=== PATIENT | female | born 1990 | race African-American/Black ===

== ENCOUNTER 2016-09-12 11:57 | Inpatient (IN) ==
[2016-09-12] MEDS ORDERED: ASPIRIN PO STA (13:45)
[2016-09-12] MEDS ORDERED: NS 1,000 ML IV ONE (13:47)
[2016-09-12 14:37] LABS: INR 1.06 (0.86-1.15); PROTIME 14.1 Seconds (12.1-15.5)
[2016-09-12 14:38] LABS: PTT PL 35.8 Seconds (22.6-43.9)
[2016-09-12 14:47] LABS: AGAP 10; ALBUMIN 4.4 g/dL (3.5-5.0); ALKALINE PHOSPHATASE 109 U/L (32-104); BUN 5 mg/dL (8-22); CALCIUM 9.2 mg/dL (8.8-10.2); CHLORIDE 104 mmol/L (98-107); CK PROFILE 86 U/L (24-173); COSMO 272; GOT 49 U/L (10-30); GPT 38 U/L (10-36); MAGNESIUM 1.8 mg/dL (1.5-2.7); POTASSIUM 3.9 mmol/L (3.5-5.1); SODIUM 138 mmol/L (136-145); TCO2 23 mmol/L (25-35); TOTAL PROTEIN 7.6 g/dL (6.3-8.3)
[2016-09-12 14:54] LABS: BASO% 0.5 % (0.0-0.8); EOS# 0.08 X1000 (0.0-0.7); EOS% 0.5 % (0.0-10.0); HEMATOCRIT 20.9 % (37.0-47.0); HEMOGLOBIN 7.1 g/dL (12.0-16.0); IMM GRAN# 0.17 X1000 (0.0-0.04); LYMPH# 7.33 X1000 (1.2-3.4); LYMPH% 42.9 % (20.5-51.1); MANUAL DIFF NEEDED? YES; MCH 31.6 PG (27-31); MCV 92.9 FL (81-99); MONO# 1.49 X1000 (0.11-0.59); MONO% 8.7 % (1.7-9.3); MPV 9.7 FL (7.4-10.4); NEUT% 46.4 % (42.2-75.2); PLT 353 X1000 (130-400); RBC 2.25 XMIL (4.2-5.4)
[2016-09-12 14:55] LABS: LYMPHS 34 % (21-51); MONO 9 % (1-9)
--- NOTE | 2016-09-12 15:01 | Diag Imaging Result Document ---
PROCEDURE NAME: CHEST-2 VIEWS - 09/12/2016 PA AND LATERAL RADIOGRAPH OF THE CHEST: COMPARISON: 07/13/2016. FINDINGS: There is a right central line in stable position. The lungs are grossly clear. There is no definite pleural fluid collection. Cardiac silhouette and central vasculature are unremarkable. IMPRESSION: No definite acute pathology by plain radiograph.
[2016-09-12] MEDS ORDERED: DILAUDID IV ONE (15:02)
[2016-09-12] MEDS ORDERED: DILAUDID ONE (15:04)
--- NOTE | 2016-09-12 15:13 | EKG Report ---
Test Performed on : 09/12/2016 2:11:31 PM Test Reason : CHEST PAIN Blood Pressure : / mmHG Vent. Rate : 085 BPM Atrial Rate : 085 BPM P-R Int : 164 ms QRS Dur : 076 ms QT Int : 394 ms P-R-T Axes : 059 018 027 degrees QTc Int : 468 ms Normal sinus rhythm. Normal ECG When compared with ECG of 13-JUL-2016 16:05, No significant change was found Unconfirmed Result
[2016-09-12 15:28] LABS: RETIC% 13.95 % (0.8-2.1); RETIC-HE 34.5 PG (28.2-36.6)
[2016-09-12 15:29] LABS: BILIRUBIN URINE NEGATIVE (NEGATIVE); BLOOD URINE NEGATIVE (NEGATIVE); CLARITY CLEAR (CLEAR); COLOR YELLOW; GLUCOSE URINE NEGATIVE (NEGATIVE); LEUKOCYTES URINE TRACE (NEGATIVE); NITRITE URINE NEGATIVE (NEGATIVE); PROTEIN URINE NEGATIVE (NEGATIVE); SP GRAVITY URINE 1.005; URINE CAST NONE SEEN /LPF; URINE CRYSTAL NONE SEEN /HPF; URINE CULTURE PL NEEDED? YES; URINE EPITHELIAL CELLS <10 /HPF (<10); URINE SOURCE CLEAN CATCH; URINE WBC <10 /HPF (<10); UROBILINOGEN URINE 1+(1 mg/dL)
--- NOTE | 2016-09-12 16:14 | PROVIDER DOCUMENTATION ---
This chart was entered by Jori London Scribe, acting as scribe for Josiane Jay MD. HPI-General Adult - General Chief Complaint: General Adult Stated Complaint: ABD PAIN Time Seen by Provider: 09/12/16 13:26 Source: patient Allergies/Adverse Reactions: Patient Allergies Allergy/AdvReac Type Severity Reaction Status Date / Time chlorpromazine HCl * Allergy Mild RASH Verified 07/13/16 14:24 [From Thorazine] ketorolac tromethamine * Allergy MUSCLE Verified 07/13/16 14:24 [From Toradol] SPASMS Home Medications: Home Medication List Medication Instructions Recorded Confirmed Last Taken Type Folic Acid 1 mg PO DAILY #0 tablet 11/01/13 07/11/16 07/11/16 07:00 Rx Clonazepam [Klonopin] 1 mg PO BID 02/26/14 07/11/16 07/11/16 07:00 History Hydroxyurea 500 mg PO BID 12/08/15 07/11/16 07/11/16 07:00 History Zolpidem [Ambien] 10 mg PO QHS 01/23/16 07/11/16 04/01/16 History Hydrocodone/APAP 5 mg/325 mg 1 each PO BID PRN #10 tablet 03/01/16 07/11/1607/26 07:00 Rx [[place]-5] Promethazine [Phenergan] 25 mg PO Q6H PRN PRN #20 tablet 04/02/16 07/11/1607/10 20:00 Rx Cetirizine HCl [Zyrtec] 10 mg PO DAILY 07/08/16 07/11/16 Unknown History Deferasirox [Jadenu] 90 mg PO 5XDAY 07/08/16 07/11/16 07/10/16 07:00 History - History of Present Illness -Gen Adult Nature of Presenting Problems: Hx of Sickle Cell anemia presents to er with cc of left sided pain x 1 week. Reports has had an ultrasound and a CT with no acute findings to pt pain. [facility] 3 days ago. Reports takes daily norco 10mg reports no relief. Location of Pain/Injury: reports: other (left rib) Quality of Pain: reports: aching Severity: reports: moderate Onset/Duration: reports: 1 week ago Timing: reports: still present Similar Symptoms Previously?: No Recently seen or treated by another doctor?: Yes Review of Systems - Adult - REVIEW OF SYSTEMS - ADULT Constitutional: denies: chills, fever, fatique Eyes: reports: no symptoms reported Ears, Nose, Mouth & Throat: reports: no symptoms reported Cardiovascular: denies: chest pain, irregular heart rate, orthopnea, syncope Respiratory: denies: cough, hemoptysis, pleurisy, shortness of breath, wheezing Gastrointestinal: reports: no symptoms reported Genitourinary: reports: no symptoms reported Musculoskeletal: reports: see HPI, bone pain. denies: joint pain, joint swelling, muscle aches Integumentary: reports: no symptoms reported Neurological: reports: no symptoms reported Psychiatric: reports: no symptoms reported Endocrine: reports: no symptoms reported Hematologic/Lymphatic: reports: no symptoms reported Allergic/Immunologic: reports: no symptoms reported All Other Systems: Reviewed and Negative Past History - Adult - PAST MEDICAL HISTORY-ADULT Review of Records: reports: Nursing Assessment Review, Medications Reviewed Major Childhood Illnesses: reports: denies history Neurological: reports: Seizures/Epilepsy (as a child) Endocrine/Immune: reports: Sickle Cell disease Sickle Cell Genotype:: SS - PRIOR SURGERIES/PROCEDURES Surgical/Procedure History: reports: cholecystectomy, BTL, , tonsillectomy, breast (reduction), other (port placement x 3) - IMMUNIZATION STATUS Childhood Immunizations: See Nurse Assessment Flu Vaccine: See Nurse Assessment - FAMILY HISTORY Family History: reviewed, not pertinent - SOCIAL HISTORY Smoking: cigarettes, less than 1 pack/day Provider spent 3-5 mins advising pt. on dangers of tobacco.: Discussed manners to quit use, and f/u contacts for add'l counseling. Substance Use: none/never Physical Exam-General - PHYSICAL EXAM-ADULT Initial Vital Signs Reviewed: Yes - CONSTITUTIONAL General Appearance: appears well, alert, mild distress - EYES Eyes: PERRL/EOMI - HEAD, EARS, NOSE, MOUTH & THROAT HENMT: moist mucous membranes, normal ENT inspection, TMs normal, pharynx normal - NECK Neck: non-tender, full range of motion, supple, normal inspection - RESPIRATORY Respiratory: chest non-tender, lungs clear, normal breath sounds, no pleuratic chest pain, no respiratory distress, no accessory muscle use - CARDIOVASCULAR Cardiovascular: tachycardia - GASTROINTESTINAL (ABDOMEN) Abdominal Exam: soft, no organomegaly, no pulsatile mass, tenderness ( generalized ttp) - MUSCULOSKELETAL Back Exam: normal inspection, no CVA tenderness, no vertebral tenderness Extremity: normal range of motion, non-tender - SKIN Integumentary: normal color, normal turgor, warm/dry - PSYCHIATRIC Psych/Mental Status: normal mood/affect, normal thought content, normal thought process, oriented x 3 Progress - PLAN OF CARE/RESULTS Progress/Plan/Lab Results: Vital Signs - 8 hr 09/12/16 12:11 Temperature 98 F Pulse Rate 100 H Respiratory Rate 18 Blood Pressure 124/70 O2 Sat by Pulse Oximetry 99 Orders Category Date Time Status Cardiac Monitoring DIRECTED Care 09/12/16 13:46 Active Saline Loc NOW Care 09/12/16 13:46 Active CHEST-2 VIEWS [RAD] Stat Exams 09/12/16 13:46 Ordered CBC WITH ELECTRONIC DIFF [HEME] Stat Lab 09/12/16 13:46 Ordered CK PROFILE [SP CHEM] Stat Lab 09/12/16 13:46 Ordered COMPREHENSIVE METABOLIC PANEL [CHEM] Stat Lab 09/12/16 13:46 Ordered D-DIMER PL [COAG] Stat Lab 09/12/16 13:46 Ordered MAGNESIUM [CHEM] Stat Lab 09/12/16 13:46 Ordered PRO B-NATRIURETIC PEPTIDE Stat Lab 09/12/16 13:[address]IME WITH INR PL [COAG] Stat Lab 09/12/16 13:[address] [COAG] Stat Lab 09/12/16 13:46 Ordered TROPONIN T Stat Lab 09/12/16 13:46 Ordered ua [URINALYSIS PL W/POSS RFLX CULT] [URINALYSIS] Stat Lab 09/12/16 13:47 Uncollected 0.9% Sodium Chloride Inj [Ns] 1,000 ml Med 09/12/16 13:47 Active IV 999 mls/hr Aspirin Med 09/12/16 13:45 Discontinued 325 mg PO STAT STA EKG [EKG] Stat Ther 09/12/16 13:46 Ordered Result Diagrams: 09/12/16 14:15 09/12/16 14:15 - EKG 1 Time of EKG reading by physician:: 14:11 EKG Read and Signed by:: Josiane Jay EKG Interpretation (*Must complete 3 of following elements*): Normal Rate: 85 Rhythm: nsr [place]: normal QRS: normal - CT/MRI 1 CT Study: other (angiogram/pulmonary arteries) Impression: Abnormal (no pe. mild basilar subsegmental atelectasis. mildly prominent heart.) - CONSULTS/PCP/HOSPITALIST Notification #1 *Consult/PCP/Hospitalist*: Time Discussed: 16:14 Consult Disposition: Admit Departure - Departure Time of Disposition Decision: 16:12 DIAGNOSIS: Sickle cell crisis Anemia Qualifiers: Anemia type: unspecified type Qualified Code(s): D64.9 - Anemia, unspecified Disposition: ADMITTED INPATIENT 09 Certified Medical Emergency: Emergent Condition: Stable Referrals and Follow-Ups: Roslyn King [Primary Care Provider] - This chart was documented by the indicated scribe, (Jori London Scribe) and accurately reflects the services I performed and decisions made by me, Josiane Jay MD, as attested by the provider's signature.
--- NOTE | 2016-09-12 16:23 | Diag Imaging Result Document ---
PROCEDURE NAME: ANGIOGRAM/PULMONARY ARTERIES - 09/12/2016 CTA CHEST: COMPARISON: 12/06/2015. FINDINGS: There is no evidence of pulmonary embolism. There is no evidence of aortic dissection or aneurysm. There is no evidence of significant mediastinal or hilar lymphadenopathy. There is suggestion of mild subsegmental atelectasis at the lung bases. The lungs are clear otherwise. There is no pleural fluid collection. The heart is somewhat prominent. Review of the upper abdomen reveals a very heterogeneous spleen, likely owing to the patient's sickle cell anemia. It is stable as compared to the very recent prior CT of the abdomen and pelvis performed earlier today. IMPRESSION: 1. Suggestion of mild bibasilar subsegmental atelectasis. 2. Mildly prominent heart. 3. No evidence of pulmonary embolism.
[2016-09-12] MEDS ORDERED: MORPHINE IV ONE (16:44)
[2016-09-12] MEDS ORDERED: ZOFRAN IV ONE (16:44)
[2016-09-12] MEDS: NS 1,000 ML IV SCH (18:56)
[2016-09-12] MEDS ORDERED: TYLENOL PO PRN (18:57)
[2016-09-12] MEDS: SODIUM CHLORIDE 0.9% INJ SCH (20:55)
[2016-09-12] MEDS: PROTONIX IV SCH (20:56)
[2016-09-12] MEDS: DILAUDID IV PRN (20:56)
[2016-09-12] MEDS: ZOFRAN IV PRN (21:42)
[2016-09-13] MEDS: DILAUDID IV PRN ×8 (00:35→20:49)
[2016-09-13] MEDS: ZOFRAN IV PRN ×2 (04:35→07:55)
[2016-09-13] MEDS: NS 1,000 ML IV SCH (07:55)
[2016-09-13 08:12] LABS: AGAP 10; ALBUMIN 4.3 g/dL (3.5-5.0); ALKALINE PHOSPHATASE 102 U/L (32-104); BUN 5 mg/dL (8-22); CALCIUM 9.1 mg/dL (8.8-10.2); CHLORIDE 103 mmol/L (98-107); COSMO 271; GOT 49 U/L (10-30); GPT 38 U/L (10-36); MAGNESIUM 1.8 mg/dL (1.5-2.7); SODIUM 137 mmol/L (136-145); TCO2 24 mmol/L (25-35); TOTAL PROTEIN 7.3 g/dL (6.3-8.3)
[2016-09-13 08:18] LABS: HEMATOCRIT 17.5 % (37.0-47.0); HEMOGLOBIN 6.1 g/dL (12.0-16.0); MCH 31.9 PG (27-31); MCHC 34.9 g/dL (33-37); MCV 91.6 FL (81-99); MPV 9.6 FL (7.4-10.4); RBC 1.91 XMIL (4.2-5.4)
[2016-09-13] MEDS ORDERED: BENADRYL PO ONE ×2 (08:52→11:30)
[2016-09-13] MEDS ORDERED: LOVENOX SUBQ SCH (09:00)
--- NOTE | 2016-09-13 09:14 | PROGRESS NOTE ---
DATE: 09/13/2016 SUBJECTIVE: The patient notes this morning that she is hurting all over, much more like her usual sickle cell crisis. States the pain started in her back as noted on the HPI over her left ribs, but unfortunately is now throughout her body. OBJECTIVE: Vital Signs: Temperature 97.0 degrees, pulse 83, respiratory rate 10, BP 108/60, satting 97% on room air. General: Patient is a well developed, well nourished female, who is in no respiratory distress, but is in obvious pain. HEENT: Normocephalic. Atraumatic. Neck: Supple. CV: Regular rate. Chest: Relatively clear. Abdomen: Soft. Extremities: Moves all extremities. Neurologic: No focal changes. LABS: Hemoglobin and hematocrit 6 and 17, WBCs 17. CMP unchanged from previous. ASSESSMENT: 1. Sickle cell pain crisis. 2. Sickle cell anemia with hemoglobin and hematocrit at 6 and 17 requiring transfusion. 3. Leukocytosis. PLAN: We will increase her Dilaudid to 2 q. 2 hours. Will add Phenergan through her port. Will type, cross, transfused 2 units, and will follow. cc: Gonzalo Rose MD
[2016-09-13] MEDS: PHENERGAN IV PRN ×3 (09:33→20:49)
[2016-09-13] MEDS ORDERED: NS 250 ML ONE (11:58)
--- NOTE | 2016-09-13 15:41 | HISTORY AND PHYSICAL ---
PRIMARY CARE PROVIDER: Dr. Roslyn King. PRIMARY CONCIERGE MANAGER: Dr. Telly Richards who follows her for sickle cell. CHIEF COMPLAINT: Rib pain left radiating around to the back. HISTORY OF PRESENT ILLNESS: This is a 26-year-old female, well known to our service. She has a history of sickle cell disease, gastroesophageal reflux disease, anxiety who comes in complaining of left lower rib pain radiating around to her back for a week. She has been evaluated by her primary care physician as well as Dr. Richards. CT scan was performed and when negative findings were discovered she was placed on Zanaflex for muscle pain. She states Zanaflex is not working. She was found to have a white count of 17.10 with a hemoglobin of 7 and hematocrit 20.9, and platelets of 353,000. Reticulocyte is 13.95 with a D-dimer of 1.55. LFTs are elevated. She was given morphine and Dilaudid IV in the emergency room. CTA was performed which was negative for PE. She was admitted for further evaluation and treatment. PAST MEDICAL HISTORY: Sickle cell disease, gastroesophageal reflux disease, anxiety and insomnia. PAST SURGICAL HISTORY: Cholecystectomy, , tubal ligation, tonsillectomy, breast reduction. SOCIAL HISTORY: She smokes a pack a day. Denies alcohol or illicit drug use. ALLERGIES: Toradol, Thorazine. HOME MEDICATIONS: A list will be obtained. REVIEW OF SYSTEMS: A 14 point review of systems were discussed with patient with pertinent positives stated in HPI. All other systems are negative. She denied chest pain, palpitations, dizziness, syncope, cough, fever, chills, recent weight loss, weight gain, nausea, vomiting, diarrhea, constipation, black or bloody vomitus, black or bloody stools. PHYSICAL EXAMINATION: GENERAL: This is a 26-year-old female who is lying in the bed, in no distress. VITAL SIGNS: Blood pressure is 124/70, with a heart rate of 86, respirations are 18, temperature is 98.3 degrees with room air saturations of 98-100%. HEENT: Head is normocephalic, atraumatic. Pupils equal, round, react to light. EOMs are intact. Sclerae anicteric. Mucous membranes are moist. NECK: Supple with trachea midline. CARDIOVASCULAR: Regular rate and rhythm. No rubs, murmurs, or gallops. S1, S2 appreciated. PULMONARY: Breath sounds are clear with no increased work of breathing noted. She does have symmetrical rise and fall of her chest. GASTROINTESTINAL: Abdomen is soft, nontender, nondistended. Bowel sounds in all 4 quadrants. BACK: No CVAT. No spine tenderness. MUSCULOSKELETAL: Good range of motion of joints. NEUROLOGIC: She is alert and oriented x3. EXTREMITIES: No clubbing, cyanosis, or edema. Pulses are palpable x4. Calves are nontender. DIAGNOSTICS: Labs as stated above. ASSESSMENT AND PLAN: 1. Sickle cell crisis. We will continue IV hydration with IV pain medication. We will consider Hydrea. 2. Sickle cell anemia significant. We will transfuse 2 units packed red blood cells. 3. Left-sided rib pain. We will continue her Zanaflex. 4. Gastroesophageal reflux disease. 5. Anxiety. We will continue her Klonopin. 6. Tobacco abuse. We will order a nicotine patch for p.r.n. We did discuss smoking cessation with the patient and she states at this time she is not interested in stopping smoking. 7. For DVT prophylaxis we will use SCDs and for GI prophylaxis PPI. Dictated by HUONG Cueto for Gonzalo Rose MD cc: HUONG Cueto MD
[2016-09-13] MEDS ORDERED: ZANAFLEX PO PRN (17:38)
[2016-09-13] MEDS: HYDREA PO SCH (20:39)
[2016-09-13] MEDS: AMBIEN PO SCH ×2 (20:40→23:03)
[2016-09-13] MEDS: KLONOPIN PO SCH (20:40)
[2016-09-13] MEDS: PROTONIX IV SCH (20:40)
[2016-09-14] MEDS: DILAUDID IV PRN ×8 (01:03→22:54)
[2016-09-14] MEDS: PHENERGAN IV PRN ×5 (01:03→23:32)
[2016-09-14] MEDS: NS 1,000 ML IV SCH ×4 (04:09→23:31)
[2016-09-14] MEDS: KLONOPIN PO SCH ×2 (08:13→22:50)
[2016-09-14] MEDS: FOLIC ACID PO SCH (08:14)
[2016-09-14] MEDS: HYDREA PO SCH ×2 (08:14→22:50)
[2016-09-14] MEDS: ROCEPHIN 1 GM/NS 1 GM/50 ML IVPB IV SCH (11:37)
--- NOTE | 2016-09-14 11:53 | PROGRESS NOTE ---
DATE: 09/14/2016 SUBJECTIVE: The patient notes that her sickle cell issues certainly appear to be improving. She is not hurting nearly as significantly as she was yesterday, although she is still having some left upper flank/lower left rib pain. This is ammonia distiller to touch. PHYSICAL EXAMINATION: Vital Signs: Temperature 98 degrees, pulse 78, respiratory rate 16, blood pressure 97/54 to 104/60, saturation 94% to 96% on room air. General: Patient is awake, alert. She is sitting up in the bed, watching television. She appears to be in no distress. Her feet are hanging over the side of the bed. HEENT: Normocephalic. Neck: Supple. Cardiovascular: Regular rate. Chest: Relatively clear. Abdomen: Soft. Extremities: Moves all extremities. Neurologic: No changes. ASSESSMENT: 1. Sickle cell pain crisis appears to be improving. 2. Increased cough, which Ms. Lyman notes is now productive. PLAN: We will a CBC to make sure that her WBC count has improved. We will start her on Rocephin, as she certainly could have a hidden pneumonia that has fluffed out. Will recheck a chest x-ray. We will continue her pain medication, although did ask her to try to start weaning her Dilaudid. Will recheck her hemoglobin and hematocrit, and transfuse to keep greater than 7 and 23. cc: Gonzalo Rose MD
[2016-09-14 12:19] LABS: HEMATOCRIT 24.3 % (37.0-47.0); HEMOGLOBIN 8.5 g/dL (12.0-16.0); MCV 88.7 FL (81-99); MPV 10.4 FL (7.4-10.4); RBC 2.74 XMIL (4.2-5.4)
[2016-09-14] MEDS: SODIUM CHLORIDE 0.9% INJ PRN ×2 (14:15→19:34)
[2016-09-14] MEDS: SODIUM CHLORIDE 0.9% INJ SCH (18:39)
[2016-09-14] MEDS: PROTONIX IV SCH (18:39)
[2016-09-14] MEDS: AMBIEN PO SCH (22:50)
[2016-09-15] MEDS: DILAUDID IV PRN ×7 (02:10→21:21)
[2016-09-15] MEDS: PHENERGAN IV PRN ×4 (05:28→21:22)
[2016-09-15] MEDS: NS 1,000 ML IV SCH ×2 (07:21→08:38)
[2016-09-15] MEDS: HYDREA PO SCH ×2 (08:37→21:22)
[2016-09-15] MEDS: FOLIC ACID PO SCH (08:37)
[2016-09-15] MEDS: KLONOPIN PO SCH ×2 (08:37→21:22)
--- NOTE | 2016-09-15 10:37 | Diag Imaging Result Document ---
PROCEDURE NAME: CHEST-2 VIEWS - 09/15/2016 CHEST X-RAY 2 VIEWS, 09/15/2016: COMPARISON: 09/12/2016. FINDINGS: Stable right chest port. There is some trace hazy atelectasis at the lower lobes bilaterally similar to prior. There is some new bandlike opacity in the right lung base laterally, suggesting a small infiltrate or atelectasis. Heart size is top normal. No pneumothorax or pleural effusion. IMPRESSION: Worsening mild atelectasis or nonspecific infiltrates in the lung bases.
[2016-09-15] MEDS ORDERED: SOMA PO ONE (11:24)
[2016-09-15] MEDS: SODIUM CHLORIDE 0.9% INJ PRN (11:25)
[2016-09-15] MEDS: ROCEPHIN 1 GM/NS 1 GM/50 ML IVPB IV SCH (11:26)
--- NOTE | 2016-09-15 11:47 | PROGRESS NOTE ---
DATE: 09/15/2016 SUBJECTIVE: The patient notes that her sickle cell pain appears to be improving. She is still having pain on her left lower lobe, left flank area in her back that is reproducible by touching and moving. Notes that the pain hurts worse when she takes a deep breath and she feels as though there are bubbles when she breathes. PHYSICAL EXAMINATION: Vital Signs: Temperature 98, pulse 89, respiratory rate 18, BP 112/74, saturation 99% on room air. General: Patient is awake, alert. She is in no current respiratory distress, although she does not want to take deep breaths secondary to the pain. ASSESSMENT: 1. Sickle cell pain crisis with sickle cell anemia. Hemoglobin and hematocrit are improved, currently 8 and 24, was down to 6 and 17 prior to transfusion. 2. Leukocytosis. This has remained stable at 17 which is essentially her baseline. Looking back to September of 2014, she has been between 13 and 20. 3. Left-sided rib pain. We will stop Zanaflex and try 1 dose of Soma. She notes that Zanaflex did not help her. This certainly appears to be more musculoskeletal as it hurts with deep breathing, hurts with movement, hurts with touch. 4. Abnormal chest x-ray. Discussed with Ms. Lyman that although she is hurting and taking lots of pain medication, she certainly has to take deep breaths as she is developing some worsening atelectasis in her lungs. She currently is on ceftriaxone. We will add azithromycin as well. cc: Gonzalo Rose MD
[2016-09-15] MEDS: ZITHROMAX PO SCH (12:14)
[2016-09-15 13:04] LABS: HEMATOCRIT 24.3 % (37.0-47.0); HEMOGLOBIN 8.2 g/dL (12.0-16.0); MCH 30.3 PG (27-31); MCHC 33.7 g/dL (33-37); MCV 89.7 FL (81-99); RBC 2.71 XMIL (4.2-5.4)
[2016-09-15 13:33] LABS: AGAP 8; ALKALINE PHOSPHATASE 102 U/L (32-104); AMYLASE 58 U/L (20-200); BUN 7 mg/dL (8-22); CALCIUM 8.7 mg/dL (8.8-10.2); CHLORIDE 103 mmol/L (98-107); COSMO 272; GOT 65 U/L (10-30); GPT 52 U/L (10-36); LIPASE 23 U/L (13-60); POTASSIUM 3.8 mmol/L (3.5-5.1); SODIUM 137 mmol/L (136-145); TCO2 27 mmol/L (25-35); TOTAL PROTEIN 6.7 g/dL (6.3-8.3)
[2016-09-15] MEDS: PROTONIX PO SCH (21:22)
[2016-09-15] MEDS: AMBIEN PO SCH (21:26)
[2016-09-16] MEDS: DILAUDID IV PRN ×9 (01:13→23:36)
[2016-09-16] MEDS: PHENERGAN IV PRN ×5 (01:13→23:35)
[2016-09-16] MEDS: ZITHROMAX PO SCH (08:46)
[2016-09-16] MEDS: KLONOPIN PO SCH ×2 (08:46→20:21)
[2016-09-16] MEDS: FOLIC ACID PO SCH (08:46)
[2016-09-16] MEDS: HYDREA PO SCH ×2 (08:46→20:21)
[2016-09-16] MEDS ORDERED: NS 500 ML ONE (10:38)
[2016-09-16] MEDS: SODIUM CHLORIDE 0.9% INJ PRN ×2 (10:41→14:50)
[2016-09-16] MEDS: ROCEPHIN 1 GM/NS 1 GM/50 ML IVPB IV SCH (10:41)
--- NOTE | 2016-09-16 16:17 | Diag Imaging Result Document ---
PROCEDURE NAME: CT THORAX W/CONTRAST - 09/16/2016 CT CHEST WITH CONTRAST: FINDINGS: Compared to 10/24/2015. Limited intravenous contrast due to lack of venous access. A dose of 60 mL were hand injected. Trace right fluid. The heart is borderline mildly prominent. No thoracic aneurysm. Mildly prominent mediastinal lymph nodes. There is a right-sided [id number]. No pneumothorax. Mild increased markings in the lung bases believed to be atelectasis. No consolidation. No lung mass. No bronchiectasis. IMPRESSION: 1. Basilar atelectasis, but no consolidation. 2. Mildly prominent mediastinal lymph nodes.
[2016-09-16] MEDS: PROTONIX PO SCH (20:21)
[2016-09-16] MEDS: AMBIEN PO SCH (23:19)
--- NOTE | 2016-09-17 00:56 | PROGRESS NOTE ---
DATE: 09/16/2016 SUBJECTIVE: Patient still complains of tenderness on her left flank, left lower rib area. Complains of this hurting with any movement or any touching. PHYSICAL: Vital signs: Temperature 98, pulse 78, respiratory 20, BP 102/60 saturations 90% on room air. General: Patient is awake, alert, oriented. She is in no distress. She states that she feels better. Notes that her sickle cell pain seems to have resolved she is still left with this left flank, left lower rib pain. HEENT: Normocephalic. Neck: Supple. CV: Regular rate. Chest: Relatively clear although she takes very shallow breaths. This seems to be intentional. Abdomen: Soft. Extremities: Moves all extremities. She is noted to have a very tender area on her left flank, left lower rehab which actually seems to be exquisitely tender before she is touched. DIAGNOSTIC DATA: WBCs improved back to her baseline currently 14, hemoglobin and hematocrit stable at 8.2 and 24. CMP essentially normal. ASSESSMENT: 1. Hyperbilirubinemia stable. 2. Mild hepatitis, AST and ALT is initially her baseline since October 2015. 3. Leukocytosis also her baseline since 2016. 4. Hyperbilirubinemia. This too is at its baseline. 5. Sickle cell pain crisis resolved. 6. Sickle cell anemia stable status post 2 units of transfusion. 7. Left lower lung, left flank pain. CT was obtained which was essentially negative. PLAN: Discussed with patient that she certainly needs to consider decreasing her pain medication. She notes that she has only been taking it every 4 hours or so. Hopefully she can be discharged home in the next 1-2 days. She notes that Soma seemed to help her pain. However discussed with her that she cannot continue Soma as it plus the amount of pain medications that she takes certainly is highly dangerous and highly addictive. cc: Gonzalo Rose MD
[2016-09-17] MEDS: DILAUDID IV PRN ×6 (03:48→19:47)
[2016-09-17] MEDS: PHENERGAN IV PRN ×4 (03:49→19:47)
[2016-09-17] MEDS: FOLIC ACID PO SCH (08:52)
[2016-09-17] MEDS: SODIUM CHLORIDE 0.9% INJ PRN ×3 (08:52→19:47)
[2016-09-17] MEDS: HYDREA PO SCH ×2 (08:52→20:28)
[2016-09-17] MEDS: KLONOPIN PO SCH ×2 (08:52→20:28)
[2016-09-17] MEDS: ZITHROMAX PO SCH (08:52)
[2016-09-17] MEDS: ROCEPHIN 1 GM/NS 1 GM/50 ML IVPB IV SCH (10:18)
--- NOTE | 2016-09-17 14:29 | PROGRESS NOTE ---
DATE: 09/17/2016 SUBJECTIVE: Today Ms. Lyman referred to be doing okay. Continues to have this persistent pain to the left posterior chest which gets worse with deep inspiration. OBJECTIVE: Vital signs: Blood pressure is 120/66, pulse of 92, respiration is 18, temperature 98.4 degrees. General: Ms. Lyman is a 26-year-old female. She is in bed, in mild painful distress. HEENT: Mucosa is pink and moist. Anicteric. Acyanotic. Neck: Supple. Chest: Air entry is bilaterally reduced. There are a few bibasilar crepitations but no rhonchi. Cardiovascular: Regular rate and rhythm. There is a port in the right upper chest wall. MASTER MACHINIST: Patient is alert and oriented x4. There is no focal neurological deficit. Abdomen: Soft. Bowel sounds are slightly reduced. LABORATORY DATA: WBC is 14.15, hemoglobin is 8.2, platelet count of 312,000. Chemistries reviewed, completely unremarkable except AST is 65, ALT is 52. Bilirubin is 1.90. DIAGNOSTIC STUDIES: A CT scan of the chest was done yesterday which reveals bibasilar atelectasis, no consolidation, mildly prominent mediastinal lymph nodes. ASSESSMENT: 1. Sickle cell crisis with chest pain. CT scan is negative for any consolidation. I think this is probably acute chest syndrome. We are going to restart her on IV fluids. We will continue with the antibiotic and adequate oxygenation if necessary. We will continue with her folic acid and hydroxyurea. 2. 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 Patient is status post 2 PRBC transfusions. 3. Hyperbilirubinemia consistent with sickling. 4. Hepatitis transaminitis likely secondary to sickle cell crisis. So in general I think Ms. Lyman has acute chest syndrome. We will continue with the IV fluids, with the current antibiotics and adequate pain control. We will review her tomorrow morning and reassess her hydration status and make changes to the rate of her fluids necessary. cc: Sesar Duran MD MTDD
[2016-09-17] MEDS: NS 1,000 ML IV SCH (16:13)
[2016-09-17] MEDS: AMBIEN PO SCH (20:29)
[2016-09-17] MEDS: PROTONIX PO SCH (20:29)
[2016-09-17] MEDS ORDERED: ATIVAN IV ONE (21:59)
[2016-09-18] MEDS: DILAUDID IV PRN ×7 (00:01→23:15)
[2016-09-18] MEDS: NS 1,000 ML IV SCH ×4 (00:04→22:20)
[2016-09-18] MEDS: PHENERGAN IV PRN ×6 (02:17→23:15)
[2016-09-18] MEDS ORDERED: FLEET ENEMA PR ONE (02:49)
[2016-09-18] MEDS ORDERED: MIRALAX PO ONE (02:49)
[2016-09-18] MEDS ORDERED: COLACE PO ONE (02:57)
[2016-09-18 07:10] LABS: BASO% 0.9 % (0.0-0.8); EOS% 2.2 % (0.0-10.0); HEMATOCRIT 22.2 % (37.0-47.0); HEMOGLOBIN 7.3 g/dL (12.0-16.0); IMM GRAN# 0.03 X1000 (0.0-0.04); IMM GRAN% 0.2 % (0.0-0.5); LYMPH# 6.74 X1000 (1.2-3.4); MANUAL DIFF NEEDED? YES; MCH 30.3 PG (27-31); MCHC 32.9 g/dL (33-37); MCV 92.1 FL (81-99); MONO# 1.22 X1000 (0.11-0.59); NEUT% 37.7 % (42.2-75.2); PLT 310 X1000 (130-400); RBC 2.41 XMIL (4.2-5.4)
[2016-09-18 07:26] LABS: AGAP 7; ALKALINE PHOSPHATASE 103 U/L (32-104); BUN 7 mg/dL (8-22); CALCIUM 8.8 mg/dL (8.8-10.2); CHLORIDE 104 mmol/L (98-107); COSMO 271; GOT 62 U/L (10-30); GPT 51 U/L (10-36); POTASSIUM 3.8 mmol/L (3.5-5.1); SODIUM 137 mmol/L (136-145); TCO2 26 mmol/L (25-35); TOTAL PROTEIN 7.1 g/dL (6.3-8.3)
[2016-09-18 08:00] LABS: BANDS 2 % (0-1); EOS 3 % (1-10); LYMPHS 51 % (21-51); MONO 4 % (1-9); NRBC 3 % (0-0)
[2016-09-18 08:01] LABS: HYPOCHROM 1+; TARGET CELLS 1+
[2016-09-18] MEDS ORDERED: MILK OF MAGNESIA PO ONE (08:45)
[2016-09-18] MEDS ORDERED: RELISTOR SUBQ ONE (08:45)
[2016-09-18] MEDS: HYDREA PO SCH ×2 (09:08→20:28)
[2016-09-18] MEDS: ZITHROMAX PO SCH (09:08)
[2016-09-18] MEDS: FOLIC ACID PO SCH (09:08)
[2016-09-18] MEDS: COLACE PO SCH (09:08)
[2016-09-18] MEDS: KLONOPIN PO SCH ×2 (09:08→20:28)
[2016-09-18] MEDS: SODIUM CHLORIDE 0.9% INJ PRN ×3 (10:50→19:11)
[2016-09-18] MEDS: ROCEPHIN 1 GM/NS 1 GM/50 ML IVPB IV SCH (10:50)
--- NOTE | 2016-09-18 15:43 | PROGRESS NOTE ---
DATE: 09/18/2016 SUBJECTIVE: Today, Ms. Lyman referred continuing to be hurting especially to the left posterior aspect of the chest and back. OBJECTIVE: Vital signs: Blood pressure is 110/60, pulse is 84, respirations 16 , temperature is 98.2 degrees. The patient has been completely afebrile since the night. General: On general examination, Ms. Lyman is a 26-year-old, female. She is in bed, in mild painful distress. HEENT: Mucus is pink and moist, anicteric, acyanotic. Neck: Supple. Chest: Clear. Cardiovascular: Regular rate and rhythm. There are no murmurs, no rubs. Abdomen: Soft, mildly tender to the left upper and flanks. Extremities: No pedal edema. Central Nervous System: Patient is alert and oriented x4. LABORATORY DATA: WBC is down to 13.46, hemoglobin is 7.3, platelet count of 310 ,000. There is 40% of segments, 2% of bands and 51% of lymphocytes. Chemistries reviewed, completely unremarkable. Total bilirubin is down to 1.60, AST is slightly down to 51. ASSESSMENT: 1. Sickle cell crisis with chest pain suspicious for acute chest syndrome. We will continue with adequate hydration, oxygenation if needed and pain management. 2. 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 The patient is status post 2 PRBC transfusions. Hemoglobin dropped slightly today to 7.3. We are going to keep an eye on this tomorrow. If it drops below 7, we will transfuse accordingly. 3. Hyperbilirubinemia consistent with sickling. 4. Transaminitis likely due to sickle cell crisis, improving. 5. Chronic pain syndrome. 6. Moderate to severe constipation. We will be aggressively treating this because I think this is causing part of patient's discomfort. A CT scan of the abdomen and pelvis , and also a CTA and a CT scan of the chest has ruled out any acute pathology that would be making the patient hurt. I think part of it is because of her sickle cell crisis but she has been under a lot of narcotics and she is severely constipated. I did explain to her that we will be reducing her narcotics because I think it is hurting her more than doing good. We will be addressing this sickling crisis with a lot of hydration, oxygenation if needed, some pain medication but we will be cutting down on her Dilaudid. I will give her 1 enema to help with her bowels. We will continue with the MiraLAX. I will also give her a dose of methylnaltrexone as a narcotic. In general, I think my encounter today with Ms. Lyman was that she was not extremely happy because of the fact that I told her we might be going down on her narcotics. She thinks the constipation is not part of her problem and she also thinks that she has been having sickle cell for some time and the pain is not consistent with sickling. I did explain to her that all her images seem to be fine and her white cell count is actually improving. Everything else in her lab work seems to be improving except that she is hurting, but because of the constipation I am going to reduce the pain medication. cc: Sesar Duran MD MTDD
[2016-09-18] MEDS: PROTONIX PO SCH (20:28)
[2016-09-18] MEDS: AMBIEN PO SCH (20:52)
[2016-09-19] MEDS: PHENERGAN IV PRN ×5 (03:06→20:38)
[2016-09-19] MEDS: DILAUDID IV PRN ×5 (03:06→20:38)
[2016-09-19] MEDS: NS 1,000 ML IV SCH ×3 (06:46→22:30)
[2016-09-19 07:29] LABS: BASO% 0.5 % (0.0-0.8); EOS% 2.2 % (0.0-10.0); HEMATOCRIT 20.3 % (37.0-47.0); HEMOGLOBIN 6.5 g/dL (12.0-16.0); IMM GRAN# 0.05 X1000 (0.0-0.04); IMM GRAN% 0.4 % (0.0-0.5); LYMPH# 6.08 X1000 (1.2-3.4); LYMPH% 45.2 % (20.5-51.1); MANUAL DIFF NEEDED? YES; MCH 29.8 PG (27-31); MCV 93.1 FL (81-99); MONO# 1.53 X1000 (0.11-0.59); MONO% 11.4 % (1.7-9.3); MPV 10.1 FL (7.4-10.4); NEUT% 40.3 % (42.2-75.2); PLT 269 X1000 (130-400); RBC 2.18 XMIL (4.2-5.4)
[2016-09-19 07:31] LABS: AGAP 9; ALBUMIN 3.6 g/dL (3.5-5.0); ALKALINE PHOSPHATASE 107 U/L (32-104); BUN 9 mg/dL (8-22); CALCIUM 8.7 mg/dL (8.8-10.2); CHLORIDE 103 mmol/L (98-107); COSMO 274; GOT 58 U/L (10-30); GPT 42 U/L (10-36); SODIUM 138 mmol/L (136-145); TCO2 26 mmol/L (25-35); TOTAL PROTEIN 6.7 g/dL (6.3-8.3)
[2016-09-19 08:06] LABS: EOS 3 % (1-10); HYPOCHROM 1+; LYMPHS 52 % (21-51); MONO 2 % (1-9); NRBC 2 % (0-0); TARGET CELLS OCCASIONAL
[2016-09-19] MEDS: COLACE PO SCH (09:47)
[2016-09-19] MEDS: ZITHROMAX PO SCH (09:47)
[2016-09-19] MEDS: HYDREA PO SCH ×2 (09:48→20:38)
[2016-09-19] MEDS: FOLIC ACID PO SCH (09:48)
[2016-09-19] MEDS: KLONOPIN PO SCH ×2 (09:48→20:38)
[2016-09-19] MEDS: ROCEPHIN 1 GM/NS 1 GM/50 ML IVPB IV SCH (11:49)
[2016-09-19] MEDS ORDERED: BENADRYL IV ONE (13:39)
[2016-09-19] MEDS ORDERED: TYLENOL PO ONE (13:39)
--- NOTE | 2016-09-19 14:47 | PROGRESS NOTE ---
DATE: 09/19/2016 SUBJECTIVE: Today Ms. Lyman referred to be doing a little better. Continues to have pain and she says she has had about 3 bowel movements. OBJECTIVE: Vital signs: Blood pressure is 88/47, pulse 82, respiration is 16, temperature is 98.6 degrees. General Exam: Ms. Lyman is a 26-year-old female. She is in bed, does not seem to be in any distress. HEENT: Mucosa is slightly pale. Anicteric. Acyanotic. Neck: Supple. Chest: Good air entry bilaterally. No crepitations. No rhonchi. Cardiovascular: Regular rate and rhythm. Abdomen: Soft, is mildly tender in the left upper quadrant to the back. Bowel sounds are present. Extremities: No pedal edema. IT TRAINER: Patient is alert and oriented x4. There is no focal neurological deficit. Extremities: No pedal edema. LABORATORY DATA: WBC is 13.45, hemoglobin is 6.5, and platelet count is 265, 000. Patient has predominant lymphocytes on the peripheral smear. The chemistries reviewed completely normal. Bilirubin is down to 1.30, AST is 58, ALT is 42, they are all improving. ASSESSMENT: 1. Sickle cell crisis with chest pain suspicious for acute chest syndrome. Patient is currently on IV hydration and adequate oxygenation and pain control. 2. Left upper quadrant pain. In a patient with a sickle cell crisis I am kind of concerned for splenic infarct. Initial CT scan was done, but it was without contrast and they could not see that much. A CT scan of the chest was unremarkable. I am going to do a CT scan of the abdomen because patient is on adequate amount of pain medication and still continues to have significant pain. I am concerned if she is having a splenic infarction from the sickle cell crisis. 3. 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 Hemoglobin and hematocrit has dropped again to 6.5, another reason to think that she is probably engorged in the spleen. I will go ahead and give her a unit of PRBC and recheck on her blood count for tomorrow. 4. Elevated liver function tests due to sickle cell crisis. This is improving. 5. Moderate to severe constipation. Will are going to be extremely careful with the opioid medication in this patient since we think it is probably causing part of her constipation. I will be addressing this symptomatically. 6. Chronic pain syndrome. Noted. PLAN: So in general, Ms. Lyman is a 26-year-old female, a little frequent flyer to the hospital. She came in on 09/13 because of pain radiating to the left rib, pain radiating around to the back. Initial workup did not actually show anything. Patient is being treated for sickle cell crisis. Persistently continues to have this inferior left chest pain with left upper quadrant pain. As I said, a CT scan of the chest was completely unremarkable. We are going to do a CT abdomen and pelvis specifically looking at the spleen to see if there had been any infarction. We will continue addressing her constipation issue with symptomatic approach. Of major concern, the patient has been in and out of hospital. She she gets a little bit offensive when you start addressing pain medication, especially when you make any suggestion about trying to cut down her pain medication needs. I think we will need to be extremely careful how much narcotics we give her since I think it is driving some of her stay. cc: Sesar Duran MD MTDD
--- NOTE | 2016-09-19 17:59 | Diag Imaging Result Document ---
PROCEDURE NAME: ABDOMEN/PELVIS W/CONTRAST - 09/19/2016 CT ABDOMEN AND PELVIS WITH INTRAVENOUS CONTRAST COMPARISON: 09/12/16. FINDINGS: Development of small basilar infiltrates. Trace pleural fluid. The gallbladder has been removed. Mottled appearance to the spleen is similar to that of the recent exam from 09/12/16. No focal hepatic abnormality. Normal pancreas and adrenal glands. Normal enhancement of the kidneys. No hydronephrosis. Normal aorta. Prominent stool throughout the colon. The bowel loops are not dilated. No inflammation about the cecum. No abscess. The urinary bladder is only mildly distended. Normal uterus. IMPRESSION: 1. Development of basilar infiltrates. 2. Cholecystectomy. 3. Heterogeneous spleen fairly similar to the prior, noncontrasted, exam. A preliminary report was given at 5:30 p.m. MTDD
[2016-09-19] MEDS: PROTONIX PO SCH (20:37)
[2016-09-19] MEDS: AMBIEN PO SCH (20:46)
[2016-09-20] MEDS: DILAUDID IV PRN ×5 (00:42→19:59)
[2016-09-20] MEDS: PHENERGAN IV PRN ×5 (00:42→19:59)
[2016-09-20 07:06] LABS: BASO% 0.6 % (0.0-0.8); EOS# 0.31 X1000 (0.0-0.7); EOS% 2.2 % (0.0-10.0); HEMATOCRIT 23.6 % (37.0-47.0); HEMOGLOBIN 7.8 g/dL (12.0-16.0); IMM GRAN# 0.07 X1000 (0.0-0.04); IMM GRAN% 0.5 % (0.0-0.5); LYMPH# 5.52 X1000 (1.2-3.4); LYMPH% 39.4 % (20.5-51.1); MANUAL DIFF NEEDED? YES; MCH 29.9 PG (27-31); MCHC 33.1 g/dL (33-37); MCV 90.4 FL (81-99); MONO# 1.57 X1000 (0.11-0.59); MONO% 11.2 % (1.7-9.3); MPV 10.4 FL (7.4-10.4); NEUT% 46.1 % (42.2-75.2); PLT 287 X1000 (130-400); RBC 2.61 XMIL (4.2-5.4)
[2016-09-20 07:08] LABS: AGAP 9; ALKALINE PHOSPHATASE 114 U/L (32-104); BUN 11 mg/dL (8-22); CALCIUM 8.8 mg/dL (8.8-10.2); CHLORIDE 103 mmol/L (98-107); COSMO 272; GOT 52 U/L (10-30); GPT 39 U/L (10-36); POTASSIUM 3.5 mmol/L (3.5-5.1); SODIUM 136 mmol/L (136-145); TCO2 24 mmol/L (25-35)
[2016-09-20 07:57] LABS: EOS 3 % (1-10); HYPOCHROM 1+; LYMPHS 40 % (21-51); MONO 7 % (1-9); NRBC 1 % (0-0)
[2016-09-20] MEDS: ZITHROMAX PO SCH (09:10)
[2016-09-20] MEDS: KLONOPIN PO SCH ×2 (09:12→21:01)
[2016-09-20] MEDS: NS 1,000 ML IV SCH ×2 (09:13→13:29)
[2016-09-20] MEDS: HYDREA PO SCH ×2 (09:13→21:01)
[2016-09-20] MEDS: FOLIC ACID PO SCH (09:13)
[2016-09-20] MEDS: COLACE PO SCH (09:13)
[2016-09-20] MEDS: ROCEPHIN 1 GM/NS 1 GM/50 ML IVPB IV SCH (12:17)
--- NOTE | 2016-09-20 13:27 | PROGRESS NOTE ---
DATE: 09/20/2016 SUBJECTIVE: Today this patient states that she has been having pain, mostly at the level of the left thoracic area and left lower thoracic portion in the back. It looks like it is sensitive to touch. We did a CT scan that did not show any abnormality. No splenic infarct. Actually this is the 2nd CT scan done for this patient. OBJECTIVE: Vital Signs: Temperature 98.1 degrees, pulse 84, respiratory rate 18, blood pressure 96/51, O2 saturation 100% on room air. HEENT: Head normocephalic. No trauma. PERRLA. The mucosa is slightly pale. Neck: Supple. No JVD. No masses. Chest: Good air entry bilateral bilaterally. Mild rales at the bases. Thorax: She has thoracic pain at the level of the left mid lateral aspect and also that runs to the pack, painful to palpation. Abdomen: Soft, mild tenderness to palpation in the left upper quadrant. Extremities: No edema. No clubbing. No cyanosis. Neurological: The patient is alert and oriented x4. No focal neurological deficits. LABORATORY: WBC 14, hemoglobin 7.8, hematocrit 23.6, platelets 287,000. Sodium 136, potassium 3.5, chloride 103, bicarbonate 24, BUN 11, creatinine 0.3. Glucose 102. Calcium 9.8. AST 52, ALT 39, alkaline phosphatase 114. ASSESSMENT AND PLAN: 1. Sickle cell crisis, with chest pain suspicious for acute chest syndrome. The patient is currently on IV fluids. She looks a little bit overloaded so I will decrease the amount from 75 to 50. Even though the oxygen saturation is fine I will put this patient on oxygen. I will also put a lidocaine patch at the level of the left aspect of the thoracic area to see if this can help. I will change her pain medication Dilaudid from q.4 hours to q.6 hours and I will start her home medication [place] 10 every 6 hours as well p.r.n. We had a CT of the abdomen that showed the lower part of the lungs and there are some infiltrates with pleural effusion likely related to the aggressive IV fluid at the beginning. 2. Left upper quadrant pain. We did a CT scan that did show any abnormality. There is no ischemic at the level of the spleen, continue to monitor. 3. 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 Her hemoglobin today is 7.8. We will continue monitoring the hemoglobin and hematocrit. 4. Elevated liver function tests due to sickle cell crisis. This is getting better although the alkaline phosphatase is slightly elevated. 5. Moderate to severe constipation. This patient is having as per the report a daily bowel movement at least for the past 2 days. We will continue to monitor with the same management. 6. Chronic pain syndrome. Noted. PLAN: In general this patient was admitted on 09/13/2016 because of pain at the level of the left thoracic area and left upper abdominal part radiated to the back. As per the patient, this is the first time that this happened. We did a CT scan that showed no spleen abnormality, mild pleural effusion and infiltrates at the level of the lower lungs likely related to fluid overload. We had a large conversation about pain medication and she is scared about changing her medications. She wants to stay on Dilaudid, but I will not do that. I will put Dilaudid instead of q.4, q.6 hours and I will start Biggers her home medication. So hopefully this will work. cc: Abe De La Rosa MD
[2016-09-20] MEDS: PROTONIX PO SCH (21:01)
[2016-09-20] MEDS: AMBIEN PO SCH (21:02)
[2016-09-21] MEDS: DILAUDID IV PRN ×4 (02:03→20:08)
[2016-09-21] MEDS: PHENERGAN IV PRN ×4 (02:04→20:09)
[2016-09-21] MEDS: NS 1,000 ML IV SCH (05:56)
[2016-09-21] MEDS: HYDREA PO SCH ×2 (08:24→20:09)
[2016-09-21] MEDS: FOLIC ACID PO SCH (08:24)
[2016-09-21] MEDS: ZITHROMAX PO SCH (08:24)
[2016-09-21] MEDS: COLACE PO SCH (08:24)
[2016-09-21] MEDS: KLONOPIN PO SCH ×2 (08:24→20:09)
[2016-09-21] MEDS: SODIUM CHLORIDE 0.9% INJ PRN ×2 (08:25→14:42)
[2016-09-21] MEDS: LIDODERM TOP SCH (08:32)
[2016-09-21 08:37] LABS: BASO% 0.9 % (0.0-0.8); EOS# 0.33 X1000 (0.0-0.7); EOS% 2.4 % (0.0-10.0); HEMATOCRIT 24.4 % (37.0-47.0); HEMOGLOBIN 7.8 g/dL (12.0-16.0); IMM GRAN# 0.06 X1000 (0.0-0.04); IMM GRAN% 0.4 % (0.0-0.5); LYMPH# 4.82 X1000 (1.2-3.4); LYMPH% 34.8 % (20.5-51.1); MANUAL DIFF NEEDED? NO; MCH 29.3 PG (27-31); MCV 91.7 FL (81-99); MONO# 1.43 X1000 (0.11-0.59); MONO% 10.3 % (1.7-9.3); MPV 10.2 FL (7.4-10.4); NEUT% 51.2 % (42.2-75.2); PLT 274 X1000 (130-400); RBC 2.66 XMIL (4.2-5.4)
[2016-09-21 08:57] LABS: AGAP 9; BUN 11 mg/dL (8-22); CALCIUM 8.8 mg/dL (8.8-10.2); CHLORIDE 102 mmol/L (98-107); COSMO 269; POTASSIUM 3.9 mmol/L (3.5-5.1); SODIUM 135 mmol/L (136-145); TCO2 24 mmol/L (25-35)
[2016-09-21] MEDS: ROCEPHIN 1 GM/NS 1 GM/50 ML IVPB IV SCH (11:37)
--- NOTE | 2016-09-21 14:59 | PROGRESS NOTE ---
DATE: 09/21/2016 SUBJECTIVE: Today Mrs. Lyman is still complaining of pain but compared with yesterday she feels better. We have started her lidocaine patch and probably this will help. I already talked to her and I am planning to change the frequency of her pain medication tomorrow. We had a CT scan result that did not show any abnormality. No splenic infarct. OBJECTIVE: Vital Signs: Temperature 98.2 degrees, pulse 98, respiratory rate 16, blood pressure 107/65, O2 saturation 100% on room air. HEENT: Head normocephalic. No trauma. PERRLA. The mucosa is slightly pale. Neck: Supple, JVD, no masses. Central trachea. Chest: Clear to auscultation. Mild rales at the bases. Thorax: She has a thoracic pain at the level of the left mid lateral aspect and this runs to the back and is painful to palpation. Abdomen: Soft, mild tenderness to palpation at the level of the left upper quadrant. Extremities: No edema. No clubbing. No cyanosis. Neurological: The patient is alert and oriented x3. No focal neurological deficits. LABORATORY: WBC 13.8, hemoglobin 7.8, hematocrit 24.4, platelets 274,000. Sodium 135, potassium 3.9, chloride 102, bicarbonate 24, BUN 11, creatinine 0.4, glucose 93, calcium 8.8. ASSESSMENT AND PLAN: 1. Sickle cell crisis with chest pain suspicious for acute chest syndrome. This patient is getting a little bit better, I will change the frequency of her medication tomorrow hopefully, O2 saturation has been fine and we will continue with the same management today for now. 2. Left upper quadrant pain. We did a CT scan that did not show any abnormality. There is not ischemic lesion at the level of the spleen. Continue to monitor. 3. 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 Her hemoglobin is about the same compared with yesterday, will continue to monitor and keeping the hemoglobin above 7. 4. Elevated liver function tests due to sickle cell crisis. Continue to monitor. 5. Constipation. Continue to monitor and treatment. 6. Chronic pain syndrome noted. cc: Abe De La Rosa MD
[2016-09-21] MEDS: PROTONIX PO SCH (20:09)
[2016-09-21] MEDS: AMBIEN PO SCH (21:40)
[2016-09-22] MEDS: DILAUDID IV PRN ×3 (02:42→18:41)
[2016-09-22] MEDS: PHENERGAN IV PRN ×5 (02:42→22:10)
[2016-09-22] MEDS: NS 1,000 ML IV SCH (02:46)
[2016-09-22 06:14] LABS: MANUAL DIFF NEEDED? NO
[2016-09-22 06:30] LABS: BASO% 0.8 % (0.0-0.8); EOS# 0.26 X1000 (0.0-0.7); EOS% 2.2 % (0.0-10.0); HEMATOCRIT 23.9 % (37.0-47.0); HEMOGLOBIN 7.5 g/dL (12.0-16.0); IMM GRAN# 0.04 X1000 (0.0-0.04); IMM GRAN% 0.3 % (0.0-0.5); LYMPH# 5.45 X1000 (1.2-3.4); LYMPH% 45.4 % (20.5-51.1); MCH 28.7 PG (27-31); MCHC 31.4 g/dL (33-37); MCV 91.6 FL (81-99); MONO# 1.19 X1000 (0.11-0.59); MONO% 9.9 % (1.7-9.3); NEUT% 41.4 % (42.2-75.2); PLT 262 X1000 (130-400); RBC 2.61 XMIL (4.2-5.4)
[2016-09-22 06:42] LABS: AGAP 10; BUN 9 mg/dL (8-22); CALCIUM 8.7 mg/dL (8.8-10.2); CHLORIDE 102 mmol/L (98-107); COSMO 270; SODIUM 136 mmol/L (136-145); TCO2 24 mmol/L (25-35)
[2016-09-22] MEDS: SODIUM CHLORIDE 0.9% INJ PRN ×3 (07:55→18:41)
[2016-09-22] MEDS: FOLIC ACID PO SCH (07:59)
[2016-09-22] MEDS: COLACE PO SCH (07:59)
[2016-09-22] MEDS: ZITHROMAX PO SCH (07:59)
[2016-09-22] MEDS: HYDREA PO SCH ×2 (07:59→21:25)
[2016-09-22] MEDS: KLONOPIN PO SCH ×2 (07:59→21:25)
[2016-09-22] MEDS: LIDODERM TOP SCH (08:00)
[2016-09-22] MEDS: ROCEPHIN 1 GM/NS 1 GM/50 ML IVPB IV SCH (10:50)
[2016-09-22] MEDS: ZOFRAN IV PRN (10:50)
[2016-09-22] MEDS: NORCO-10 PO PRN ×2 (15:29→21:24)
--- NOTE | 2016-09-22 16:03 | PROGRESS NOTE ---
DATE: 09/22/2016 SUBJECTIVE: She states that the pain is a little bit better but she is still having pain. I already changed her pain medication from q.6h hours to be q.8 hours and I told the patient that tomorrow hopefully she will be discharged. She thinks that this is going to be okay. We had a CT scan result that did not did not show any abnormality, no splenic infarct. OBJECTIVE: Vital Signs: Temperature 98.2 degrees, pulse 86, respiratory rate 18, blood pressure 100/58, O2 saturation 100% on room air. HEENT: Head normocephalic. No trauma. PERRLA. The mucosa is slightly pale. Neck: Supple. No JVD. No masses. Central trachea. Chest: Clear to auscultation. Mild rales at the bases. Thorax: She has a thoracic pain at the level of the left mid lateral aspect and this radiates to the back and is painful to palpation. Abdomen: Soft, mild tenderness to palpation at the level of the left upper quadrant. Extremities: No edema. No clubbing. No cyanosis. Neurological: The patient is alert and oriented x3. No focal neurological deficits. LABORATORY: WBC 12, hemoglobin 7.5, hematocrit 23.9, platelets 262,000. Sodium 136, potassium 4, chloride 102, bicarbonate 24, BUN 9, creatinine 0.4, glucose 87, calcium 8.7. ASSESSMENT AND PLAN: 1. Sickle cell crisis with chest pain suspicious for acute chest syndrome. This patient is getting better. I changed the frequency of her medication from q.6 hours to q.8 hours. I will continue with oxygen and p.o. medications as well. 2. Left upper quadrant pain. We did a CT scan that did not show any abnormality. There is no ischemic lesion. There is no ischemic lesion at the level of the spleen. Continue to monitor. 3. 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 The hemoglobin has been stable, above 7. 4. Elevated liver function tests due to sickle cell crisis. Continue to monitor. 5. Constipation. Continue treatment. 6. Chronic pain syndrome noted. Overall, this patient is doing much better. I think this patient can be discharged tomorrow with followup by her primary care physician. cc: Abe De La Rosa MD
[2016-09-22] MEDS: PROTONIX PO SCH (21:25)
[2016-09-23] MEDS: NS 1,000 ML IV SCH (00:54)
[2016-09-23] MEDS: AMBIEN PO SCH (02:26)
[2016-09-23] MEDS: PHENERGAN IV PRN ×3 (04:05→14:08)
[2016-09-23] MEDS: DILAUDID IV PRN (04:05)
[2016-09-23 06:06] LABS: MANUAL DIFF NEEDED? NO
[2016-09-23 06:34] LABS: AGAP 9; BUN 9 mg/dL (8-22); CALCIUM 8.7 mg/dL (8.8-10.2); CHLORIDE 103 mmol/L (98-107); COSMO 269; POTASSIUM 4.1 mmol/L (3.5-5.1); SODIUM 135 mmol/L (136-145); TCO2 23 mmol/L (25-35)
[2016-09-23 07:10] LABS: EOS# 0.24 X1000 (0.0-0.7); EOS% 2.2 % (0.0-10.0); HEMATOCRIT 22.5 % (37.0-47.0); HEMOGLOBIN 7.1 g/dL (12.0-16.0); IMM GRAN# 0.03 X1000 (0.0-0.04); IMM GRAN% 0.3 % (0.0-0.5); LYMPH% 45.1 % (20.5-51.1); MCH 29.1 PG (27-31); MCHC 31.6 g/dL (33-37); MCV 92.2 FL (81-99); MONO# 1.25 X1000 (0.11-0.59); MONO% 11.5 % (1.7-9.3); MPV 10.4 FL (7.4-10.4); NEUT% 39.9 % (42.2-75.2); PLT 258 X1000 (130-400); RBC 2.44 XMIL (4.2-5.4)
[2016-09-23] MEDS: ZITHROMAX PO SCH (10:05)
[2016-09-23] MEDS: COLACE PO SCH (10:05)
[2016-09-23] MEDS: FOLIC ACID PO SCH (10:05)
[2016-09-23] MEDS: HYDREA PO SCH (10:05)
[2016-09-23] MEDS: KLONOPIN PO SCH (10:05)
[2016-09-23] MEDS: LIDODERM TOP SCH (10:10)
[2016-09-23] MEDS: NORCO-10 PO PRN (10:10)
[2016-09-23] MEDS: ROCEPHIN 1 GM/NS 1 GM/50 ML IVPB IV SCH (11:32)
[2016-09-23 11:45] VITALS: BP 104/57
--- NOTE | 2016-09-23 11:45 | Diag Imaging Result Document ---
PROCEDURE NAME: CHEST-2 VIEWS - 09/23/2016 COMPARISON: 09/15/2016. FINDINGS: Right chest port is stable. The opacity at the right lung base may be marginally worse suggesting slight worsening of atelectasis versus infiltrate. The opacity at the left lung base has essentially cleared. Otherwise, no new consolidation is identified. Cardiac silhouette is stable. IMPRESSION: Suggestion of marginal worsening of the opacity at the right lung base and essential clearing at the left lung base as described.
[2016-09-23] MEDS ORDERED: PHENERGAN PO PRN (15:20)
--- NOTE | 2016-09-24 19:13 | DISCHARGE SUMMARY ---
ADMISSION DATE: 09/12/2016 DISCHARGE DATE: 09/23/2016 DATE OF ADMISSION: 09/12/2016. DATE OF DISCHARGE: 09/23/2016. DIAGNOSES: 1. Sickle cell crisis with chest pain suspicious for acute chest syndrome, this is resolving. The patient has some right lateral rib pain at intervals, but she states it is much better than before. 2. Left upper quadrant pain, resolved. 3. 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 Hemoglobin and hematocrit have been stable above 7. 4. Elevated LFTs due to sickle cell crisis. 5. Constipation, resolved. 6. Chronic pain syndrome, noted. DIAGNOSTICS: 09/12/2016 pulmonary arteriogram: Revealed: 1. Suggestion of mild bibasilar subsegmental atelectasis. 2. No evidence of pulmonary embolism. 09/16/[address]: Revealed bibasilar atelectasis, but no consolidation. 09/19/2016 CT of the abdomen and pelvis: Revealed development of basilar infiltrates, cholecystectomy. Chest x- ray: Revealed increasing opacity at the right lung base and clearing of the left lung base. MICROBIOLOGY: Urine culture: Revealed no pathogenic growth. Sputum culture: Revealed normal gutierrez. HOSPITAL COURSE: Ms. Lyman presented to the emergency room complaining of chest pain, which was her usual pain with her sickle cell crisis being at the left-sided rib pain that radiated around to the back. She stated she had had this for a week prior to coming to the emergency room. She has been evaluated by Dr. Richards. Had a negative CT, then was placed on Zanaflex. She stated this was not working. Therefore, she presented to the emergency room. She did have elevated D-dimer. CTA was negative for a pulmonary embolus. She was transfused 2 units, as her hemoglobin and hematocrit was 6.5 and 20.3 on admission. She has stayed stable at 7.1 to 7.8, 22.5 to 23.9, since transfusion. Her baseline WBC since September 2014 has been between 13 and 20. She came in at 17.1. She has stayed 10-13 over the last week. She has remained afebrile. We did continue her folic acid and hydroxyurea, as well as the IV hydration. She was noted to have bibasilar infiltrates, for which she was treated with azithromycin and Rocephin. She did receive these for 10 days IV. Over the last 48 hours, she has improved subjectively, requiring less IV Dilaudid, returning to her home regimen of [place] 10. DISCHARGE PHYSICAL EXAMINATION: Cardiovascular: Regular rate and rhythm. S1 and S2 appreciated. Pulmonary: Breath sounds clear with no increased work of breathing noted. Gastrointestinal: Abdomen is soft, nontender, nondistended with bowel sounds in all 4 quadrants. Extremities: No clubbing, cyanosis, or edema. Calves nontender. Pulses palpable x4. DISCHARGE MEDICATIONS: 1. Claritin 10 at bedtime. 2. Jedenu 90 mg 5 times a day. 3. Folic acid 1 mg daily. 4. Klonopin 1 mg b.i.d. 5. Phenergan 25 mg every 6 hours p.r.n. 6. Hydroxy urea 500 mg b.i.d. 7. Ambien 10 mg at bedtime. 8. [place] 10 every 4 hours p.r.n. 9. Levaquin 750 mg daily x5 days, then discontinue. 10. Tizanidine 1 tab every 8 hours p.r.n. DISCHARGE ACTIVITY: As tolerated. DISCHARGE DIET: Regular. FOLLOWUP: 1. She needs to follow up with her primary care physician in the next 1-[address] Telly Richards in the next 1-2 weeks or as scheduled. DISCHARGE VITAL SIGNS: Blood pressure is 104/57 with a heart rate of 90. Respirations are 20. Temperature is 98.4 degrees oral with oxygen saturations of 99 to 100% on room air. DISCHARGE DISPOSITION: She is being discharged home in stable condition with family members. She has being given a prescription for Levaquin 750 mg daily for 5 days with no refills. She has being given no other prescriptions. She has been instructed to call her prescribing physician for any refills on any of her regular home medications. TIME SPENT: This is a greater than 30 minute discharge. Dictated by HUONG Cueto for Jaspreet Castillo MD cc: HUONG Cueto Addendum: I personally evaluated and examined the patient in conjunction to the DIRECTOR OF PLANNING and agreed with her plans and dispositions. No chest pain on exam MTDD
== END 2016-09-23 15:55 | disposition home or self-care (01) ==
LOC: P.ED 11:57 → SUATTDRO 17:05 → P.MEDSURG 17:05
PROVIDERS: ATTEND Internal Medicine

== ENCOUNTER 2017-02-24 08:32 | Inpatient (IN) ==
[2017-02-24] MEDS ORDERED: NS 1,000 ML IV ONE (09:27)
[2017-02-24] MEDS ORDERED: DILAUDID IV ONE ×2 (09:56→11:11)
[2017-02-24] MEDS ORDERED: ZOFRAN IV ONE (09:56)
[2017-02-24] MEDS ORDERED: DILAUDID ONE (10:03)
[2017-02-24 10:04] LABS: BASO% 0.5 % (0.0-0.8); EOS# 0.06 X1000 (0.0-0.7); EOS% 0.3 % (0.0-10.0); HEMATOCRIT 19.7 % (37.0-47.0); HEMOGLOBIN 6.7 g/dL (12.0-16.0); IMM GRAN# 0.81 X1000 (0.0-0.04); IMM GRAN% 3.8 % (0.0-0.5); LYMPH% 22.2 % (20.5-51.1); MANUAL DIFF NEEDED? NO; MCV 91.2 FL (81-99); MONO# 1.94 X1000 (0.11-0.59); MPV 10.1 FL (7.4-10.4); NEUT% 64.2 % (42.2-75.2); PLT 336 X1000 (130-400); RBC 2.16 XMIL (4.2-5.4); RETIC% 15.82 % (0.8-2.1); RETIC-HE 35.6 PG (28.2-36.6)
[2017-02-24 12:12] LABS: URINE CULTURE PL NEEDED? NO
[2017-02-24 12:15] LABS: BILIRUBIN URINE NEGATIVE (NEGATIVE); BLOOD URINE TRACE (NEGATIVE); CLARITY CLEAR (CLEAR); COLOR YELLOW; GLUCOSE URINE NEGATIVE (NEGATIVE); LEUKOCYTES URINE NEGATIVE (NEGATIVE); NITRITE URINE NEGATIVE (NEGATIVE); PROTEIN URINE TRACE mg/dL (NEGATIVE); UROBILINOGEN URINE NORMAL
[2017-02-24 12:25] LABS: URINE EPITHELIAL CELLS <10 /HPF (<10); URINE RBC <10 /HPF (<10); URINE SOURCE CLEAN CATCH; URINE WBC <10 /HPF (<10)
[2017-02-24 13:17] LABS: AGAP 10; ALBUMIN 4.6 g/dL (3.5-5.0); ALKALINE PHOSPHATASE 113 U/L (32-104); BUN 4 mg/dL (8-22); CALCIUM 9.1 mg/dL (8.8-10.2); CHLORIDE 102 mmol/L (98-107); COSMO 266; GOT 39 U/L (10-30); GPT 32 U/L (10-36); POTASSIUM 4.4 mmol/L (3.5-5.1); SODIUM 134 mmol/L (136-145); TCO2 22 mmol/L (25-35); TOTAL PROTEIN 7.9 g/dL (6.3-8.3)
[2017-02-24] MEDS ORDERED: ZANAFLEX PO PRN (13:51)
[2017-02-24] MEDS ORDERED: NS 1,000 ML ONE (13:51)
[2017-02-24] MEDS ORDERED: TYLENOL PO ONE (17:05)
[2017-02-24] MEDS ORDERED: BENADRYL PO ONE (17:05)
[2017-02-24] MEDS: NS 1,000 ML IV SCH (17:24)
[2017-02-24] MEDS: DILAUDID IV PRN ×2 (17:54→21:21)
[2017-02-24] MEDS ORDERED: ROCEPHIN 1 GM in NS 50 ML IV SCH (19:45)
[2017-02-24] MEDS ORDERED: AMBIEN PO SCH (21:00)
[2017-02-24] MEDS: HYDREA PO SCH (21:20)
[2017-02-25] MEDS: NS 1,000 ML IV SCH ×3 (05:43→14:05)
[2017-02-25] MEDS: DILAUDID IV PRN ×3 (05:44→13:23)
[2017-02-25 06:03] LABS: RETIC% 12.5 % (0.8-2.1); RETIC-HE 32.9 PG (28.2-36.6)
[2017-02-25 06:22] LABS: AGAP 9; ALBUMIN 3.9 g/dL (3.5-5.0); ALKALINE PHOSPHATASE 100 U/L (32-104); BUN 4 mg/dL (8-22); CALCIUM 8.6 mg/dL (8.8-10.2); CHLORIDE 105 mmol/L (98-107); COSMO 269; GOT 34 U/L (10-30); GPT 27 U/L (10-36); POTASSIUM 4.1 mmol/L (3.5-5.1); SODIUM 136 mmol/L (136-145); TCO2 22 mmol/L (25-35); TOTAL PROTEIN 7.2 g/dL (6.3-8.3)
[2017-02-25 06:24] LABS: BASO% 0.5 % (0.0-0.8); EOS# 0.18 X1000 (0.0-0.7); EOS% 0.9 % (0.0-10.0); HEMATOCRIT 25.6 % (37.0-47.0); HEMOGLOBIN 8.6 g/dL (12.0-16.0); IMM GRAN# 0.17 X1000 (0.0-0.04); IMM GRAN% 0.9 % (0.0-0.5); LYMPH# 8.35 X1000 (1.2-3.4); MANUAL DIFF NEEDED? YES; MCH 29.7 PG (27-31); MCHC 33.6 g/dL (33-37); MCV 88.3 FL (81-99); MONO# 1.89 X1000 (0.11-0.59); MONO% 9.7 % (1.7-9.3); MPV 10.2 FL (7.4-10.4); PLT 342 X1000 (130-400)
[2017-02-25 06:41] LABS: LYMPHS 44 % (21-51); MONO 12 % (1-9); NRBC 4 % (0-0)
[2017-02-25] MEDS: HYDREA PO SCH (08:48)
[2017-02-25] MEDS: ZOFRAN IV PRN ×2 (08:48→13:23)
[2017-02-25] MEDS ORDERED: FOLIC ACID PO SCH (09:00)
[2017-02-25] MEDS ORDERED: NORCO-10 PO PRN (13:53)
[2017-02-25 15:54] VITALS: BP 110/53
== END 2017-02-25 17:25 | disposition left against medical advice (07) ==
LOC: P.ED 08:32 → SUATTDRO 15:21 → P.MEDSURG 15:21
PROVIDERS: ATTEND Family Medicine

== ENCOUNTER 2019-02-17 10:11 | Inpatient (IN) ==
[2019-02-17] MEDS ORDERED: NS 1,000 ML IV ONE (10:48)
[2019-02-17] MEDS ORDERED: MORPHINE IV ONE (10:49)
[2019-02-17] MEDS ORDERED: ZOFRAN IV ONE ×2 (10:49→13:21)
[2019-02-17 11:05] LABS: BASO# 0.07 X1000 (0.0-0.2); BASO% 0.3 % (0.0-0.8); EOS# 0.03 X1000 (0.0-0.7); EOS% 0.1 % (0.0-10.0); HEMATOCRIT 20.9 % (37.0-47.0); HEMOGLOBIN 7.1 g/dL (12.0-16.0); IMM GRAN# 0.68 X1000 (0.0-0.04); LYMPH# 3.44 X1000 (1.2-3.4); LYMPH% 15.4 % (20.5-51.1); MCH 30.6 PG (27-31); MCV 90.1 FL (81-99); MONO# 1.27 X1000 (0.11-0.59); MONO% 5.7 % (1.7-9.3); NEUT# 16.84 X1000 (1.4-6.5); NEUT% 75.5 % (42.2-75.2); PLT 288 X1000 (130-400); RBC 2.32 XMIL (4.2-5.4); RDW 14.8 % (11.5-14.5); WBC 22.33 X1000 (4.8-10.8)
[2019-02-17 11:07] LABS: AGAP 13; ALB/GLOB RATIO 1.6; ALBUMIN 5.1 g/dL (3.5-5.0); ALKALINE PHOSPHATASE 121 U/L (32-104); BUN 7 mg/dL (8-22); CHLORIDE 104 mmol/L (98-107); COSMO 276; CREATININE 0.5 mg/dL (0.5-0.9); ESTIMATED GFR > 60; GLUCOSE 113 mg/dL (70-104); GOT 42 U/L (10-30); GPT 32 U/L (10-36); POTASSIUM 3.3 mmol/L (3.5-5.1); SODIUM 139 mmol/L (136-145); TCO2 22 mmol/L (25-35); TOTAL BILIRUBIN 1.86 mg/dL (0.20-1.00); TOTAL PROTEIN 8.2 g/dL (6.3-8.3)
--- NOTE | 2019-02-17 11:09 | Diag Imaging Result Doc PS360 ---
CHEST-PORTABLE - 02/17/2019 INDICATION: CHEST PAIN COMPARISON: 07/06/2018 FINDINGS: The lungs are normally expanded and clear. Heart size and mediastinal contours are normal. No pneumothorax or pleural effusion. Stable right chest port in good position. IMPRESSION: Negative exam. Electronically signed by Jarek Diego 02/17/2019 11:07 AM
[2019-02-17 11:17] LABS: BANDS 7 % (0-1); LYMPHS 10 % (21-51); MONO 7 % (1-9); SEGS 72 % (42-75)
[2019-02-17] MEDS ORDERED: DILAUDID IV ONE (13:20)
--- NOTE | 2019-02-17 13:21 | PROVIDER DOCUMENTATION ---
This chart was entered by Emily Kim Scribe, acting as scribe for Mitzi Mckeon MD. HPI-General Adult - General Chief Complaint: Sickle Cell Crisis Stated Complaint: SICKLE CELL CRISIS Time Seen by Provider: 02/17/19 10:38 Source: patient, family Allergies/Adverse Reactions: Patient Allergies Allergy/AdvReac Type Severity Reaction Status Date / Time chlorpromazine HCl * Allergy Mild RASH Verified 02/17/19 15:30 [From Thorazine] ketorolac tromethamine * Allergy MUSCLE Verified 02/17/19 15:30 [From Toradol] SPASMS Home Medications: Home Medication List Medication Instructions Recorded Confirmed Last Taken Type Clonazepam [Klonopin] 1 mg PO BID 02/26/14 02/17/19 02/16/19 History Deferasirox [Jadenu] 90 mg PO QHS 07/08/16 02/17/19 02/16/19 History Omeprazole 10 mg PO DAILY 02/24/17 02/17/19 02/16/19 History Multivitamin with Minerals 1 cap PO DAILY 02/20/18 02/17/19 02/16/19 History [Multiple Vitamin] Hydroxyurea 500 mg PO BID 07/06/18 02/17/19 02/16/19 History Hydrocodone/Acetaminophen [[place] 1 tab PO Q4H PRN PRN 07/22/18 02/17/19 02/16/19 History 10-325 Tablet] Cetirizine [Zyrtec] 10 mg PO DAILY 09/10/18 02/17/19 02/16/19 History - History of Present Illness -Gen Adult Nature of Presenting Problems: 29 yobf presents to the ed with c/o generalized pain with sickle cell crisis for 3 days. on exam is in mild distress secondary to pain. pt is otherwise nontoxic appearance Location of Pain/Injury: reports: generalized Quality of Pain: reports: aching Severity: reports: moderate Onset/Duration: reports: 3 days ago Timing: reports: still present, intermittent Context/Activities at Onset: reports: light activity Modifying Factors: improves with: nothing Associated Symptoms: reports: other (generalized pain). denies: chest pain, cough, nausea, shortness of breath, vomiting Similar Symptoms Previously?: Yes (sickle cell) Recently seen or treated by another doctor?: No - Sickle Cell Pain Related Context Sickle Cell Pain Location: reports: generalized Is this pain typical of prior episodes of crisis?: Yes Review of Systems - Adult - REVIEW OF SYSTEMS - ADULT Constitutional: denies: chills, fever Eyes: reports: no symptoms reported Ears, Nose, Mouth & Throat: reports: no symptoms reported Cardiovascular: denies: chest pain, palpitations Respiratory: reports: no symptoms reported Gastrointestinal: denies: nausea, vomiting Genitourinary: reports: no symptoms reported Musculoskeletal: reports: see HPI, other (generalized pain) Integumentary: reports: no symptoms reported Neurological: denies: dizziness/vertigo, headache/migraines Psychiatric: reports: no symptoms reported Endocrine: reports: no symptoms reported Hematologic/Lymphatic: reports: see HPI, other (sickle cell) Allergic/Immunologic: reports: no symptoms reported All Other Systems: Reviewed and Negative Past History - Adult - PAST MEDICAL HISTORY-ADULT Review of Records: reports: Old Records Reviewed, Nursing Assessment Review, Medications Reviewed, Social history reviewed & non-contributory. 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) Psychiatric: reports: anxiety Endocrine/Immune: reports: Sickle Cell disease Sickle Cell Genotype:: SS - PRIOR SURGERIES/PROCEDURES Surgical/Procedure History: reports: cholecystectomy, BTL, , tonsillectomy, breast, other - IMMUNIZATION STATUS Childhood Immunizations: See Nurse Assessment Flu Vaccine: See Nurse Assessment - FAMILY HISTORY Family History: reviewed, not pertinent - SOCIAL HISTORY Smoking: denies Substance Use: denies Living Situation: family Physical Exam-General - PHYSICAL EXAM-ADULT Initial Vital Signs Reviewed: Yes - CONSTITUTIONAL General Appearance: appears well, alert, mild distress (pt c/o generalized pain) - EYES Eyes: PERRL/EOMI, pink conjunctivae - HEAD, EARS, NOSE, MOUTH & THROAT HENMT: moist mucous membranes - NECK Neck: non-tender, full range of motion, supple, normal inspection - RESPIRATORY Respiratory: chest non-tender, lungs clear, normal breath sounds - CARDIOVASCULAR Cardiovascular: normal peripheral pulses, regular rate, rhythm - CHEST (BREASTS) Chest/Breast: other (PICC in rt upper chest) - GASTROINTESTINAL (ABDOMEN) Abdominal Exam: normal bowel sounds, non tender, soft - LYMPHATIC Lymphatic: no adenopathy - MUSCULOSKELETAL Back Exam: normal inspection, no CVA tenderness, no vertebral tenderness Extremity: normal range of motion, non-tender, normal gait, normal inspection - SKIN Integumentary: normal color, normal turgor, warm/dry - NEUROLOGIC Neurologic: grossly normal - PSYCHIATRIC Psych/Mental Status: normal mood/affect, normal thought content, normal thought process, oriented x 3 Progress - PLAN OF CARE/RESULTS Progress/Plan/Lab Results: Vital Signs - 8 hr 02/17/19 10:17 Temperature 97.5 F L Pulse Rate 91 H Respiratory Rate 18 Blood Pressure 130/89 O2 Sat by Pulse Oximetry 95 Orders Category Date Time Status Saline Loc NOW Care 02/17/19 10:38 Active CHEST-PORTABLE [RAD] Stat Exams 02/17/19 10:39 Ordered CBC WITH DIFF [HEME] Stat Lab 02/17/19 10:41 Ordered COMPREHENSIVE METABOLIC PANEL [CHEM] Stat Lab 02/17/19 10:41 Ordered Result Diagrams: 02/18/19 06:36 02/18/19 06:36 - REASSESSMENT Reassessment #1 Time Reassessed: 13:18 Status: unchanged - XRAY 1 XRAY: Bilateral XRAY Study: Chest Impression: See EMR Report (CHEST-PORTABLE - 02/17/2019 INDICATION: CHEST PAIN COMPARISON: 07/06/2018 FINDINGS: The lungs are normally expanded and clear. Heart size and mediastinal contours are normal. No pneumothorax or pleural effusion. Stable right chest port in good position. IMPRESSION: Negative exam. Electronically signed by Jarek Diego 02/17/2019 11:07 AM 02/17/19 1107 Interpreting Physician: Jarek Diego MD Dictated Date/Time: 02/17/19 1103 cc: Mitzi Mckeon MD; Roslyn King) - CONSULTS/PCP/HOSPITALIST Notification #1 *Consult/PCP/Hospitalist*: dr hooper nurse Time Discussed: 13:18 Reason/Comments: phone consult #2 Consult: hospitalist Time Discussed: 15:09 (spoke with guanaco) Consult Disposition: Admit Departure - Departure Date of Disposition Decision: 02/17/19 Time of Disposition Decision: 13:20 DIAGNOSIS: Sickle cell anemia with pain, Anemia Disposition: HOME 01 Certified Medical Emergency: Emergent Condition: Good - Critical Care Note This patient required my direct & personal management of CC.: No Attestation - Physician/ WAN Attestation Patient care was provided by Advanced Practice Provider:: No The physician spent face to face time with patient:: Yes Advanced Practice Provider documentation review:: Supervising physician onsite and consulted in the evaluation and care of this patient. The physician did have a face to face encounter with the patient. This chart was documented by the indicated scribe, (Emily Kim Scribe) and accurately reflects the services I performed and decisions made by me, Mitzi Mckeon MD, as attested by the provider's signature.
[2019-02-17 14:10] LABS: RETIC% 14.17 % (0.8-2.1); RETIC-HE 32.3 PG (28.2-36.6)
[2019-02-17 14:14] LABS: INR 1.07
[2019-02-17 14:15] LABS: PTT 46.1 Seconds (22.3-41.8)
[2019-02-17] MEDS ORDERED: NS 500 ML IV ONE (15:14)
[2019-02-17] MEDS ORDERED: NORCO-7.5 PO PRN (15:51)
[2019-02-17] MEDS ORDERED: ZOFRAN IV PRN (15:51)
[2019-02-17] MEDS: PHENERGAN IV PRN ×2 (18:53→23:06)
[2019-02-17] MEDS: SODIUM CHLORIDE 0.9% INJ PRN (18:53)
[2019-02-17] MEDS: DILAUDID IV PRN ×2 (18:53→23:06)
[2019-02-17] MEDS: NS 1,000 ML IV SCH (18:53)
--- NOTE | 2019-02-17 19:44 | HISTORY AND PHYSICAL ---
ADDENDUM: I have seen and examined Ms. Lyman today. She was in the ER. There was no family member at the bedside. Ms. Lyman presented to the emergency room today because of excruciating generalized pains, more so to the pelvic girdle. This has been going on since yesterday, but became excruciatingly worse today. She has a history of sickle cell disease and she follows up with Dr. Richards. I have reviewed her current vitals. She is not febrile, with temperature 97.5 degrees. Blood pressure is 130/89, pulse is 91, respiration is 18. Patient is saturating 95% on room air. Physical exam is also unremarkable except for some mild tenderness in the abdomen, but no rebound or guarding. Her chest is clear to auscultation. I have reviewed her lab works. She has a white cell count of 22.33, hemoglobin is 7.1, platelet count of 288,000. She has a reticulocyte count of 14, which seems to be remarkably higher than she has ever had. Bilirubin is also elevated. A chest x-ray this morning shows a negative chest. Her working diagnoses will be: 1. Sickle cell disease, both painful crisis and hemolytic crisis. Patient will be adequately fluid resuscitated. We will control her pain with intravenous opioids, and we will transfuse her a unit of packed red blood cells. We will also notify her primary care reel assembler/oncologist (Dr. Richards). 2. Leukocytosis, presumably reactive; however, cultures have been done to rule out any potential infections. Clinical volume depletion. Patient will continue on intravenous fluids. Please refer to the details of the History and Physical, which has been dictated by the nurse practitioner in the chart. cc: Sesar Duran MD
[2019-02-17] MEDS ORDERED: NORCO-10 PO PRN (20:04)
[2019-02-17] MEDS: TYLENOL PO PRN (20:35)
--- NOTE | 2019-02-17 21:00 | HISTORY AND PHYSICAL ---
PRIMARY CARE PROVIDER: Roslyn King M.D. PRIMARY SPECTROGRAPH OPERATOR: Telly Richards MD CHIEF COMPLAINT: Generalized pain. HISTORY OF PRESENT ILLNESS: Ms. Rosalina Lyman is a 29-year-old, female with a medical history of sickle cell who states that she started feeling generalized achiness, body aches for the last 2 days. Denies any fever, chills, but she states she has been on her menstrual cycle, very heavy for at least 3 days, just got off of it, now comes in with complaints of lower back to hip and down the legs pain, a little bit of sternal pain that goes along with it, 7/10, and her [place] at home have not been helping. She has a hemoglobin level of 7.1, and her reticulocyte count is 14.17 and the equivalent 32.3. She will get 1 unit of packed red blood cells while she is here. She is going to get some IV fluid hydration, and we will treat her symptomatically as well. Dr. Richards has been consulted. Otherwise, there are no other complaints from her. Ms. Rosalina Lyman also states that her last hospital visit was in June 2018 for crisis, but normally she is able to be controlled as an outpatient. She comes in as an outpatient in the ER and has blood transfusions, able to go back home. PAST MEDICAL HISTORY: 1. Sickle cell anemia. 2. Anxiety disorder. 3. GERD. 4. Seasonal allergies. 5. Chronic elevation of liver enzymes. 6. Chronic leukocytosis. PAST SURGICAL HISTORY: 1. Right port placement. 2. Tonsillectomy and adenoidectomy. 3. Cholecystectomy. 4. Breast reduction. 5. section. 6. Bilateral tubal ligation. SOCIAL HISTORY: She is a half pack per day smoker and has been so for at least 8 years. Denies alcohol or any illicit drug use. She used to use marijuana but stopped that about 6 months ago. FAMILY HISTORY: Mother had hypertension. Father had diabetes type 2. She denies any family having sickle cell. It is noted that both her parents have the sickle cell trait. ALLERGIES: Compazine and Toradol. HOME MEDICATIONS: 1. Jadenu 90 mg p.o. nightly. 2. Hydroxyurea 500 mg p.o. twice daily. 3. Clonazepam 1 mg p.o. b.i.d. 4. Multivitamin 1 tablet p.o. daily. 5. [place] 10s 1 tablet p.o. every 4 hours. 6. Omeprazole 10 mg p.o. daily. 7. Zyrtec 10 mg p.o. daily REVIEW OF SYSTEMS: Fourteen-point review of systems are complete, and all were negative for those mentioned above in HPI. PHYSICAL EXAMINATION: VITAL SIGNS: Temperature 97.5 degrees, heart rate 91, respiratory rate 18, blood pressure 111/57, O2 saturation 98% on room air. GENERAL: Ms. Rosalina Lyman is a 29-year-old, female. She is in no acute distress. She is able to answer questions appropriately. HEENT: Atraumatic, normocephalic. Pupils equal, round, reactive to light. Extraocular movements intact. Mucous membranes are dry. NECK: Trachea midline. CARDIOVASCULAR: S1, S2. Regular rate and rhythm. No rubs, gallops, murmurs. No lower extremity edema. +2 dorsalis and radial pulses. Negative JVD or carotid bruits. PULMONARY: Clear to auscultate bilateral breath sounds. No accessory muscle use or work of breathing noted. GASTROINTESTINAL: Soft, nontender, nondistended. Positive bowel sounds x4. EXTREMITIES: Moves all extremities equally. Full range of motion. NEUROLOGIC: A and O x3. Follows commands. Sensory is intact. SKIN: Warm, dry, intact. LABORATORY DATA: White blood cells 22,000, hemoglobin 7, hematocrit 20, platelet count 288,000. INR is 1.07. PTT is 46.1. Sodium 139, potassium 3.3, BUN 7, creatinine 0.5, glucose 113, calcium 9.0, bilirubin is 1.86, AST 42, CK 54, troponin less than 0.01, albumin is 5.1, serum lactate 0.8. IMAGING: Chest x-ray: Negative exam. ASSESSMENT AND PLAN: 1. Sickle cell anemia with crisis. Her hemoglobin is 7.1. She is symptomatic. She will get a unit of blood, some IV fluid hydration and pain controlled with Demerol. Nausea controlled with Phenergan, and Dr. Richards is consulted. She is on Jadenu and hydroxyurea so we will continue those once they are verified. 2. Anxiety. Continue home medication for that. 3. Gastrointestinal reflux disease. Continue proton pump inhibitor. 4. Seasonal allergies. We will continue her Zyrtec. 5. Tobacco abuse. Cessation discussed. Dictated by HUONG Conley for Sesar Duran MD cc: HUONG Conley MD
[2019-02-17] MEDS ORDERED: BENADRYL IV ONE (21:08)
[2019-02-17] MEDS: HYDREA PO SCH (21:40)
[2019-02-17] MEDS: KLONOPIN PO SCH (21:40)
[2019-02-18 03:07] LABS: URINE SOURCE CLEAN CATCH
[2019-02-18] MEDS: PHENERGAN IV PRN ×5 (03:07→20:53)
[2019-02-18] MEDS: DILAUDID IV PRN ×5 (03:09→20:54)
[2019-02-18 03:38] LABS: BILIRUBIN URINE NEGATIVE (NEGATIVE); BLOOD URINE NEGATIVE (NEGATIVE); COLOR YELLOW; GLUCOSE URINE NEGATIVE (NEGATIVE); KETONE URINE NEGATIVE (NEGATIVE); LEUKOCYTES URINE NEGATIVE (NEGATIVE); NITRITE URINE NEGATIVE (NEGATIVE); PH URINE 6.5; PROTEIN URINE NEGATIVE (NEGATIVE); SP GRAVITY URINE 1.014; TURBIDITY URINE CLEAR (CLEAR); UR EPITHELIAL CELLS <10 /HPF (<10); URINE BACTERIA 1+ /HPF; URINE RBC <10 /HPF (<10); URINE WBC <10 /HPF (<10); UROBILINOGEN URINE NORMAL (NORMAL)
[2019-02-18] MEDS: NS 1,000 ML IV SCH ×4 (05:22→20:52)
[2019-02-18 07:26] LABS: INR 1.2; PROTIME 15.4 Seconds (11.0-16.0)
[2019-02-18 07:27] LABS: PTT 34.8 Seconds (22.3-41.8)
[2019-02-18 07:33] LABS: BASO# 0.05 X1000 (0.0-0.2); BASO% 0.4 % (0.0-0.8); EOS# 0.11 X1000 (0.0-0.7); EOS% 0.8 % (0.0-10.0); HEMOGLOBIN 7.2 g/dL (12.0-16.0); IMM GRAN# 0.08 X1000 (0.0-0.04); IMM GRAN% 0.6 % (0.0-0.5); LYMPH# 6.07 X1000 (1.2-3.4); LYMPH% 45.3 % (20.5-51.1); MCH 30.8 PG (27-31); MCHC 34.3 g/dL (33-37); MCV 89.7 FL (81-99); MONO# 1.24 X1000 (0.11-0.59); MONO% 9.2 % (1.7-9.3); MPV 10.4 FL (7.4-10.4); NEUT# 5.86 X1000 (1.4-6.5); NEUT% 43.7 % (42.2-75.2); PLT 266 X1000 (130-400); RBC 2.34 XMIL (4.2-5.4); RDW 14.9 % (11.5-14.5); WBC 13.41 X1000 (4.8-10.8)
[2019-02-18 07:41] LABS: AGAP 11; ALB/GLOB RATIO 1.4; ALBUMIN 3.6 g/dL (3.5-5.0); ALKALINE PHOSPHATASE 94 U/L (32-104); BUN 7 mg/dL (8-22); CALCIUM 8.2 mg/dL (8.8-10.2); CHLORIDE 107 mmol/L (98-107); COSMO 277; CREATININE 0.5 mg/dL (0.5-0.9); ESTIMATED GFR > 60; GLUCOSE 96 mg/dL (70-104); GOT 34 U/L (10-30); GPT 27 U/L (10-36); MAGNESIUM 1.3 mg/dL (1.5-2.7); POTASSIUM 3.2 mmol/L (3.5-5.1); SODIUM 140 mmol/L (136-145); TCO2 22 mmol/L (25-35); TOTAL BILIRUBIN 1.51 mg/dL (0.20-1.00); TOTAL PROTEIN 6.1 g/dL (6.3-8.3)
[2019-02-18] MEDS: PATIENT'S OWN MED PO SCH ×2 (07:49→20:51)
[2019-02-18] MEDS: ZYRTEC PO SCH (08:03)
[2019-02-18] MEDS: CENTRUM TABLET PO SCH (08:03)
[2019-02-18] MEDS: SODIUM CHLORIDE 0.9% INJ PRN ×3 (08:03→16:38)
[2019-02-18] MEDS: PRILOSEC PO SCH (08:03)
[2019-02-18] MEDS: HYDREA PO SCH ×2 (08:04→20:53)
[2019-02-18] MEDS: KLONOPIN PO SCH ×2 (08:04→20:53)
[2019-02-18 08:34] LABS: EOS 2 % (1-10); LYMPHS 44 % (21-51); NRBC 2 % (0-0); SEGS 54 % (42-75)
[2019-02-18] MEDS ORDERED: KLOR-CON PO ONE (09:17)
[2019-02-18] MEDS ORDERED: MAGNESIUM SULFATE 2 GM/S.W.I. 2 GM/50 ML IVPB IV ONE (13:12)
--- NOTE | 2019-02-18 13:32 | PROGRESS NOTE ---
DATE: 02/18/2019 SUBJECTIVE: This patient is still complaining of low back pain that radiated to the legs but compared with yesterday, she feels a little bit better. She is status post 1 PRBC. The hemoglobin is about the same compared with yesterday. Yesterday, it as 7.1. Today, it is 7.2. I will continue to monitor this. White blood cell count improved from 22 to 13 but has been always elevated. Hematology/oncology department has been consulted. Continue with pain medication and home medications as well, IV fluids. OBJECTIVE: Vital Signs: Temperature 98.8 degrees, pulse 76, respiratory rate 20, blood pressure 93/51, oxygen saturation 97% on room air. HEENT: Head normocephalic. No trauma. PERRLA. Neck: Supple. No JVD. No masses. Central trachea. Chest: Clear to auscultation. No wheezing. No rales. Abdomen: Soft, nontender, nondistended. No hepatosplenomegaly. Extremities: No edema, no clubbing, no cyanosis. Neurological Examination: The patient is alert. She is oriented x3. No focal deficits. Back: Painful to palpation and mobilization, mostly the lower part. Laboratory: WBC 13.4, hemoglobin 7.2, hematocrit 21, platelets 266,000. Sodium 140, potassium 3.2, chloride 107, bicarbonate 22, BUN 7, creatinine 0.5, glucose 96, calcium 8.2, magnesium 1.3. AST 34, ALT 27, alkaline phosphatase 94, albumin 3.6. ASSESSMENT AND PLAN: 1. Sickle cell anemia with sickle cell crisis. Hemoglobin initially was 7.1. She received 1 unit of packed red blood cells and from 7.1, increased to 7.2. Also, she has been getting intravenous fluids for hydration, pain control, and nausea and vomiting control with medications. We will continue with the same management and home medications as well. 2. Anxiety. Continue home medications. 3. Gastroesophageal reflux disease. Continue with proton pump inhibitors. 4. Seasonal allergies. Continue with Zyrtec. 5. Tobacco abuse. This patient has been highly advised against tobacco use and I will continue with daily cessation education. 6. I will continue to monitor the hemoglobin and hematocrit. cc: Abe De La Rosa MD
--- NOTE | 2019-02-18 18:44 | HEMO/ONC CONSULTATION ---
DATE: 02/18/2019 REFERRING PHYSICIAN: Sesar Duran MD. REASON FOR CONSULTATION: Sickle cell crisis, known to our service. CHIEF COMPLAINT: Sickle cell crisis. HISTORY OF PRESENT ILLNESS: Rosalina Lyman is a very pleasant 29-year-old, woman with a past medical history of sickle cell anemia, GERD, anxiety, allergies, leukocytosis, who presented to [facility] with complaints of body aches and pain for 2 days. She takes [place] at home for pain. She reports that it was not controlling her pain. She is scheduled to see us in our office today for a routine follow up. She is being admitted for sickle cell crisis, pain control and IV hydration. The Hematology/Oncology service was placed on consult for further workup and treatment options. PAST MEDICAL HISTORY: As mentioned in HPI. PAST SURGICAL HISTORY: 1. Tubal ligation. 2. Breast reduction. 3. Tonsillectomy and adenoidectomy. 4. Port-A-Cath placement. 5. Cholecystectomy. 6. section. SOCIAL HISTORY: The patient is a current smoker. She denies any alcohol, tobacco or illicit drug use currently. She does have a history of marijuana use. FAMILY HISTORY: Significant for sickle cell trait in patient's brother. ALLERGIES: Toradol and Compazine. MEDICATIONS: As per medication sheet. REVIEW OF SYSTEMS: As per HPI. Otherwise, a 12-point review of systems was negative. PHYSICAL EXAMINATION: General: The patient appears to be in no apparent distress. She is lying quietly in her hospital bed resting. Vital Signs: Blood pressure 93/51 pulse 76, respirations 20, temperature 98.8 degrees Fahrenheit, O2 saturation 97% on room air. HEENT: Head normocephalic, atraumatic. Mucosa is pink and moist. Pupils reactive to light. Oropharynx clear. Neck: Supple. No lymphadenopathy or thyromegaly. Cardiovascular: S1, S2. Regular rate and rhythm. No murmurs. Respiratory: Breath sounds clear to auscultation bilaterally. No rhonchi or wheezing noted. Gastrointestinal: Soft, nontender, nondistended. Positive bowel sounds. Neurologically: She has a normal gait. LABORATORY DATA: Total white blood cell count 13.41, hemoglobin 7.2, hematocrit 21, platelet count 266,000. ANC 16.4. Sodium 140, potassium 3.2, chloride 107, BUN 7, creatinine 0.5, glucose 96, LDH 353, T bilirubin 1.51. AST 34, ALT 27, PTT 46.1, INR 1.07, PT 14. PLAN: 1. Sickle cell crisis. We agree with current management as per hospitalist including O2 support, pain control and transfusing of the patient as needed. We will monitor counts closely. 2. Leukocytes of peer likely reactive. She has had a history of leukocytosis for 8+ years. We agree with cultures to rule out infection. We will continue to monitor. 3. Pain control. We agree with [place] and Dilaudid as needed. Thank you for this consult and allowing us to take part in the care of this patient. We will follow along with you. cc: Telly Richards MD
[2019-02-19] MEDS: PHENERGAN IV PRN ×5 (01:20→20:06)
[2019-02-19] MEDS: DILAUDID IV PRN ×6 (01:21→20:07)
[2019-02-19] MEDS: NS 1,000 ML IV SCH ×3 (04:35→20:04)
[2019-02-19 08:49] LABS: BASO# 0.04 X1000 (0.0-0.2); BASO% 0.3 % (0.0-0.8); EOS# 0.07 X1000 (0.0-0.7); EOS% 0.5 % (0.0-10.0); HEMATOCRIT 21.4 % (37.0-47.0); HEMOGLOBIN 7.3 g/dL (12.0-16.0); IMM GRAN# 0.06 X1000 (0.0-0.04); IMM GRAN% 0.4 % (0.0-0.5); LYMPH% 41.7 % (20.5-51.1); MCH 30.3 PG (27-31); MCHC 34.1 g/dL (33-37); MCV 88.8 FL (81-99); MONO# 1.13 X1000 (0.11-0.59); MONO% 8.4 % (1.7-9.3); MPV 10.7 FL (7.4-10.4); NEUT# 6.53 X1000 (1.4-6.5); NEUT% 48.7 % (42.2-75.2); PLT 262 X1000 (130-400); RBC 2.41 XMIL (4.2-5.4); RDW 15.4 % (11.5-14.5); WBC 13.43 X1000 (4.8-10.8)
[2019-02-19 08:53] LABS: AGAP 9; BUN 7 mg/dL (8-22); CALCIUM 7.9 mg/dL (8.8-10.2); CHLORIDE 104 mmol/L (98-107); COSMO 267; CREATININE 0.4 mg/dL (0.5-0.9); ESTIMATED GFR > 60; GLUCOSE 77 mg/dL (70-104); POTASSIUM 3.8 mmol/L (3.5-5.1); SODIUM 135 mmol/L (136-145); TCO2 22 mmol/L (25-35)
[2019-02-19 08:58] LABS: HYPOCHROM 1+; LYMPHS 48 % (21-51); MONO 6 % (1-9); NRBC 3 % (0-0); POIKILOCYTOSIS 1+; SEGS 46 % (42-75)
[2019-02-19 08:59] LABS: SICKLE CELLS 1+
[2019-02-19] MEDS: KLONOPIN PO SCH ×2 (09:31→20:08)
[2019-02-19] MEDS: HYDREA PO SCH ×2 (09:31→20:08)
[2019-02-19] MEDS: ZYRTEC PO SCH (09:31)
[2019-02-19] MEDS: PRILOSEC PO SCH (09:31)
[2019-02-19] MEDS: CENTRUM TABLET PO SCH (09:31)
--- NOTE | 2019-02-19 10:32 | PROGRESS NOTE ---
DATE: 02/19/2019 SUBJECTIVE: This patient is still complaining of pain but, compared with yesterday and the day before, she seems to be better. She is status post 1 PRBC. Pending lab work today, probably this patient will be discharged tomorrow. OBJECTIVE: Vital Signs: Temperature 98.5 degrees, pulse 78, respiratory rate 19, blood pressure 102/65, oxygen saturation 100% on room air. HEENT: Head normocephalic. No trauma. PERRLA. Neck: Supple. No JVD. No masses. Central trachea. Chest: Clear to auscultation. No wheezing. No rales. Abdomen: Soft, nontender, nondistended. No hepatosplenomegaly. Extremities: No edema, no clubbing, no cyanosis. Neurological: The patient is alert. She is oriented x3. She is complaining of back pain radiating to the legs. LABORATORY: Pending lab work at this moment. ASSESSMENT AND PLAN: 1. Sickle cell anemia with sickle cell crisis. Initially her hemoglobin was 7.1. She received 1 unit of PRBC and increased to 7.2 after getting a lot of fluids also. Pain is better controlled as well as the nausea and vomiting with medications. We will continue with same management for now. I will see again the hemoglobin today and in the morning for the possibility of transfusing this patient again. 2. Anxiety. Continue home medication. 3. Gastroesophageal reflux disease. Continue with proton pump inhibitors. 4. Seasonal allergies. Continue with Zyrtec. 5. Tobacco abuse. This patient has been advised against tobacco use. I will continue with daily cessation education, especially this patient. Overall, she seems to be doing a little bit better. She is still complaining of pain. I believe she can be 1 more day. Probably she will need a new blood transfusion. I told the patient to avoid IV narcotics due to on-and-off low blood pressure, mostly in the 90s and she seems to understand. Hopefully tomorrow will discharge this patient home. cc: Abe De La Rosa MD
[2019-02-19] MEDS: SODIUM CHLORIDE 0.9% INJ PRN (16:04)
[2019-02-19] MEDS: PATIENT'S OWN MED PO SCH (20:09)
[2019-02-20] MEDS: DILAUDID IV PRN ×7 (00:13→21:41)
[2019-02-20] MEDS: PHENERGAN IV PRN ×6 (00:13→21:40)
[2019-02-20] MEDS: NS 1,000 ML IV SCH ×3 (06:27→20:12)
[2019-02-20 08:03] LABS: BASO# 0.04 X1000 (0.0-0.2); BASO% 0.3 % (0.0-0.8); EOS# 0.13 X1000 (0.0-0.7); HEMATOCRIT 20.4 % (37.0-47.0); IMM GRAN# 0.04 X1000 (0.0-0.04); IMM GRAN% 0.3 % (0.0-0.5); LYMPH% 40.2 % (20.5-51.1); MCH 30.7 PG (27-31); MCHC 34.3 g/dL (33-37); MCV 89.5 FL (81-99); MONO# 1.09 X1000 (0.11-0.59); MONO% 8.8 % (1.7-9.3); MPV 10.6 FL (7.4-10.4); NEUT# 6.15 X1000 (1.4-6.5); NEUT% 49.4 % (42.2-75.2); PLT 278 X1000 (130-400); RBC 2.28 XMIL (4.2-5.4); RDW 15.5 % (11.5-14.5); WBC 12.45 X1000 (4.8-10.8)
[2019-02-20] MEDS ORDERED: NS 500 ML IV ONE (08:13)
[2019-02-20 08:34] LABS: EOS 2 % (1-10); LYMPHS 40 % (21-51); MONO 6 % (1-9); NRBC 3 % (0-0); SEGS 51 % (42-75)
[2019-02-20 08:36] LABS: ANISOCYTOSIS 3+; POIKILOCYTOSIS 1+
[2019-02-20] MEDS: PRILOSEC PO SCH (08:55)
[2019-02-20] MEDS: KLONOPIN PO SCH ×2 (08:55→20:12)
[2019-02-20] MEDS: HYDREA PO SCH ×2 (08:55→20:12)
[2019-02-20] MEDS: CENTRUM TABLET PO SCH (08:55)
[2019-02-20] MEDS: ZYRTEC PO SCH (08:55)
[2019-02-20] MEDS ORDERED: BENADRYL IV ONE (10:32)
[2019-02-20] MEDS: TYLENOL PO PRN (10:42)
--- NOTE | 2019-02-20 11:15 | PROGRESS NOTE ---
DATE: 02/20/2019 SUBJECTIVE: This patient is still complaining of pain. Hemoglobin dropped to 7. I will give her 1 unit of packed red blood cells. Hopefully, I can discharge this patient today in the afternoon or tomorrow morning. OBJECTIVE: Vital Signs: Temperature 98.9 degrees, pulse 98, respiratory rate 21, blood pressure 110/65, oxygen saturation 100% on room air. HEENT: Head normocephalic, no trauma. PERRLA. Neck: Supple. No JVD. No masses. Central trachea. Chest: Clear to auscultation. No wheezing. No rales. Abdomen: Soft. Some tenderness to palpation at the level of the epigastric area and back. Extremities: No edema, no clubbing, no cyanosis. Neurological: The patient is alert. She is oriented. She is a little bit sleepy today. She is complaining of back pain radiating to her legs. LABORATORY: WBC 12.4, hemoglobin 7. ASSESSMENT AND PLAN: 1. Sickle cell anemia with sickle cell crisis. Her hemoglobin dropped to 7 again, so we will give her a unit of packed red blood cells, hopefully I can discharge this patient today in the afternoon or tomorrow morning depending on how she does. She is still complaining of pain. Continue with same management for now. 2. Anxiety. Continue home medication. 3. Gastroesophageal reflux disease. Continue on proton pump inhibitor. 4. Seasonal allergies. Continue with Zyrtec. 5. Tobacco abuse. This patient has been highly advised against tobacco use. I will continue with daily cessation education, especially with this patient with sickle cell anemia. cc: Abe De La Rosa MD
[2019-02-20] MEDS: SODIUM CHLORIDE 0.9% INJ PRN ×2 (13:24→17:33)
[2019-02-20] MEDS: PATIENT'S OWN MED PO SCH (20:39)
[2019-02-21] MEDS: PHENERGAN IV PRN ×4 (01:31→12:06)
[2019-02-21] MEDS: DILAUDID IV PRN ×4 (01:31→11:56)
[2019-02-21 07:53] LABS: AGAP 9; BUN 9 mg/dL (8-22); CALCIUM 8.1 mg/dL (8.8-10.2); CHLORIDE 105 mmol/L (98-107); COSMO 274; CREATININE 0.5 mg/dL (0.5-0.9); ESTIMATED GFR > 60; GLUCOSE 89 mg/dL (70-104); POTASSIUM 3.9 mmol/L (3.5-5.1); SODIUM 138 mmol/L (136-145); TCO2 24 mmol/L (25-35)
[2019-02-21 08:00] LABS: BASO# 0.04 X1000 (0.0-0.2); BASO% 0.3 % (0.0-0.8); EOS# 0.18 X1000 (0.0-0.7); EOS% 1.5 % (0.0-10.0); HEMOGLOBIN 8.5 g/dL (12.0-16.0); IMM GRAN# 0.05 X1000 (0.0-0.04); IMM GRAN% 0.4 % (0.0-0.5); LYMPH# 4.02 X1000 (1.2-3.4); LYMPH% 33.6 % (20.5-51.1); MCH 30.1 PG (27-31); MCV 88.7 FL (81-99); MONO# 0.99 X1000 (0.11-0.59); MONO% 8.3 % (1.7-9.3); MPV 10.5 FL (7.4-10.4); NEUT# 6.69 X1000 (1.4-6.5); NEUT% 55.9 % (42.2-75.2); PLT 268 X1000 (130-400); RBC 2.82 XMIL (4.2-5.4); RDW 15.2 % (11.5-14.5); WBC 11.97 X1000 (4.8-10.8)
[2019-02-21 09:20] LABS: HYPOCHROM 1+; LYMPHS 40 % (21-51); MONO 6 % (1-9); POIKILOCYTOSIS 1+; SEGS 54 % (42-75); SICKLE CELLS 1+
--- NOTE | 2019-02-21 09:38 | DISCHARGE SUMMARY ---
ADMISSION DATE: 02/17/2019 DISCHARGE DATE: SUBJECTIVE: This patient feels better today. The pain is better controlled. The hemoglobin improved to 8.5. She will be discharged home. DISCHARGE DIAGNOSES: 1. Sickle cell anemia with sickle cell crisis. 2. Anxiety. 3. Gastroesophageal reflux disease. 4. Seasonal allergies. 5. Tobacco abuse. PROCEDURES PERFORMED: Chest x-ray dated 02/17/2019. Impression: Negative exam. CONSULTS: Hematology/oncology department, Dr. Richards. HOSPITAL COURSE: A 29-year-old, female with a past medical history of sickle cell disease, anxiety, GERD, seasonal allergies, chronic elevation of the liver enzymes, and chronic leukocytosis. Presented to the emergency department and was admitted on 02/17/2019 due to generalized pain for 2 days. She denied any fever or chills but she stated that she has been on her menstrual cycle which has been very heavy for at least 3 days. She was complaining of lower back pain that radiated to her legs, also some sternal pain at around 7/10, and she stated that her [place] at home was not helping. Her hemoglobin level was 7.1 and her reticulocyte count was 14.7, and the equivalent 32.3. She received 1 unit of blood initially and she was placed on aggressive IV fluids as well as pain medication. Dr. Richards evaluated this patient and, basically, we continued with the same management. The patient was getting better on a daily basis. She received another blood transfusion because the hemoglobin dropped to 7. She feels better today. Hemoglobin is at 8.5. She is not complaining of too much pain or shortness of breath. The case has been discussed with the patient and she agreed to go home and follow up with the hematology/oncology department, Dr. Richards, in 1 week. PHYSICAL EXAMINATION: Vital Signs: Temperature 98.7 degrees, pulse 71, respiratory rate 20, blood pressure 109/60, oxygen saturation 97% on room air. HEENT: Head normocephalic. No trauma. PERRLA. Neck is supple. No JVD. No masses. Central trachea. Chest: Clear to auscultation. No wheezing. No rales. Abdomen: Soft. Some tenderness to palpation at the level of the epigastric area and back. Extremities: No edema, no clubbing, no cyanosis. Neurological Examination: This patient is alert. She is oriented x3. She is complaining a little bit of back pain that radiated to her legs but much better compared with admission. LABORATORY: WBC 11.9, hemoglobin 8.5, hematocrit 25, platelets 268,000. Sodium 138, potassium 3.9, chloride 105, bicarbonate 24, BUN 9, creatinine 0.5, glucose 89, calcium 8.1. DISCHARGE MEDICATIONS: 1. Zyrtec 10 mg p.o. daily. 2. Clonazepam 1 mg p.o. b.i.d. 3. Deferasirox 90 mg p.o. at bedtime. 4. [place] 10 every 4 hours as needed x20 tablets. 5. Hydroxyurea 500 mg p.o. b.i.d. 6. Multivitamins 1 capsule p.o. daily. 7. Omeprazole 10 mg p.o. daily. Time discharging this patient, 20 minutes. cc: Abe De La Rosa MD
[2019-02-21] MEDS: PRILOSEC PO SCH (11:55)
[2019-02-21] MEDS: HYDREA PO SCH (11:55)
[2019-02-21] MEDS: ZYRTEC PO SCH (11:55)
[2019-02-21] MEDS: KLONOPIN PO SCH (11:55)
[2019-02-21] MEDS: CENTRUM TABLET PO SCH (11:55)
[2019-02-21] MEDS: NS 1,000 ML IV SCH (11:56)
[2019-02-21 12:17] VITALS: BP 110/71
== END 2019-02-21 13:05 | disposition home or self-care (01) | DRG 812 ==
LOC: ED 10:11 → 3N 15:53 → SUATTDRO 15:53
PROVIDERS: ATTEND Internal Medicine

== ENCOUNTER 2019-04-04 12:01 | Inpatient (IN) ==
[2019-04-04] MEDS ORDERED: NS 1,000 ML IV ONE (13:27)
[2019-04-04] MEDS ORDERED: PHENERGAN IV ONE (13:27)
[2019-04-04] MEDS ORDERED: SODIUM CHLORIDE 0.9% INJ ONE (13:27)
--- NOTE | 2019-04-04 13:30 | PROVIDER DOCUMENTATION ---
HPI-General Adult - General Chief Complaint: Sickle Cell Crisis Stated Complaint: SICKLE CELL CRISIS,VOMITING BLOOD Time Seen by Provider: 04/04/19 13:14 Source: patient Allergies/Adverse Reactions: Patient Allergies Allergy/AdvReac Type Severity Reaction Status Date / Time chlorpromazine HCl * Allergy Mild RASH Verified 04/04/19 12:21 [From Thorazine] ketorolac tromethamine * Allergy MUSCLE Verified 04/04/19 12:21 [From Toradol] SPASMS Home Medications: Home Medication List Medication Instructions Recorded Confirmed Last Taken Type Clonazepam [Klonopin] 1 mg PO BID 02/26/14 04/04/19 04/03/19 History Deferasirox [Jadenu] 90 mg PO QHS 07/08/16 04/04/19 04/03/19 History Omeprazole 10 mg PO DAILY 02/24/17 04/04/19 04/03/19 History Hydroxyurea 500 mg PO BID 07/06/18 04/04/19 04/03/19 History Cetirizine [Zyrtec] 10 mg PO DAILY 09/10/18 04/04/19 04/03/19 History Hydrocodone/Acetaminophen [[place] 1 tab PO Q4H PRN PRN #20 tab 02/21/19 04/04/19 04/03/19 Rx 10-325 Tablet] - History of Present Illness -Gen Adult Nature of Presenting Problems: 29yof present to ER with c/o generalized pain. Pt states "I'm having a sickle cell crisis". Pt reports hx of same. Denies fever. Pt reports she vomited x 1 last night and had blood streaking in the emesis. Pt states she saw her cashier greeter last week. Location of Pain/Injury: reports: generalized Quality of Pain: reports: aching Associated Symptoms: reports: nausea, vomiting. denies: chest pain, dizziness, fever/chills, shortness of breath Review of Systems - Adult - REVIEW OF SYSTEMS - ADULT Constitutional: reports: no symptoms reported. denies: fever Eyes: reports: no symptoms reported Ears, Nose, Mouth & Throat: reports: no symptoms reported Cardiovascular: reports: no symptoms reported. denies: chest pain Respiratory: reports: no symptoms reported. denies: shortness of breath Gastrointestinal: reports: see HPI, nausea, vomiting. denies: abdominal pain Genitourinary: reports: no symptoms reported. denies: dysuria Musculoskeletal: reports: no symptoms reported Integumentary: reports: no symptoms reported Neurological: reports: no symptoms reported Psychiatric: reports: no symptoms reported Endocrine: reports: no symptoms reported Hematologic/Lymphatic: reports: no symptoms reported Allergic/Immunologic: reports: no symptoms reported All Other Systems: Reviewed and Negative Past History - Adult - PAST MEDICAL HISTORY-ADULT Review of Records: reports: Old Records Reviewed, Nursing Assessment Review, Medications Reviewed, Social history reviewed & non-contributory. 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) Psychiatric: reports: denies history Endocrine/Immune: reports: Sickle Cell disease Sickle Cell Genotype:: SS Other Conditions: reports: denies history - PRIOR SURGERIES/PROCEDURES Surgical/Procedure History: reports: cholecystectomy, BTL, , tonsillectomy, breast, other - IMMUNIZATION STATUS Childhood Immunizations: See Nurse Assessment Flu Vaccine: See Nurse Assessment - FAMILY HISTORY Family History: reviewed, not pertinent Physical Exam-General - PHYSICAL EXAM-ADULT Initial Vital Signs Reviewed: Yes - CONSTITUTIONAL General Appearance: alert, no apparent distress - EYES Eyes: pink conjunctivae - HEAD, EARS, NOSE, MOUTH & THROAT HENMT: moist mucous membranes - RESPIRATORY Respiratory: lungs clear, normal breath sounds, no respiratory distress, no accessory muscle use - CARDIOVASCULAR Cardiovascular: regular rate, rhythm - GASTROINTESTINAL (ABDOMEN) Abdominal Exam: normal bowel sounds, non tender, soft - LYMPHATIC Lymphatic: no adenopathy - MUSCULOSKELETAL Back Exam: normal inspection Extremity: normal range of motion, normal gait, normal inspection - SKIN Integumentary: normal color, warm/dry. negative: diaphoresis - NEUROLOGIC Neurologic: grossly normal, no motor/sensory deficits - PSYCHIATRIC Psych/Mental Status: normal mood/affect, oriented x 3 Progress - PLAN OF CARE/RESULTS Progress/Plan/Lab Results: Vital Signs - 8 hr 04/04/19 12:07 Temperature 98.5 F Pulse Rate 107 H Respiratory Rate 18 Blood Pressure 96/63 O2 Sat by Pulse Oximetry 96 Orders Category Date Time Status CBC WITH DIFF [HEME] Stat Lab 04/04/19 13:18 Ordered COMPREHENSIVE METABOLIC PANEL [CHEM] Stat Lab 04/04/19 13:18 Uncollected PROTIME WITH INR [COAG] Stat Lab 04/04/19 13:18 Uncollected PTT [COAG] Stat Lab 04/04/19 13:18 Uncollected RETIC COUNT [HEME] Stat Lab 04/04/19 13:18 Uncollected Result Diagrams: 04/04/19 14:10 04/04/19 14:10 - XRAY 1 XRAY Study: Chest Impression: See EMR Report (COMMENT: There is a Port-A-Cath on the right. The heart size and pulmonary vascularity are within normal limits. The appearance of the chest has not changed significantly since 02/17/2019. IMPRESSION: Stable chest. Electronically signed by Antelmo Mccoy 04/04/2019 2:55 PM) - CONSULTS/PCP/HOSPITALIST Notification #1 *Consult/PCP/Hospitalist*: HUONG Chinchilla hospitalist Time Discussed: 15:26 Reason/Comments: Dr Garces Consult Disposition: Will see in ED, Admit Departure - Departure Date of Disposition Decision: 04/04/19 Time of Disposition Decision: 15:15 DIAGNOSIS: Sickle cell crisis Disposition: ADMITTED INPATIENT 09 Certified Medical Emergency: Emergent Condition: Fair Referrals and Follow-Ups: Roslyn King [Primary Care Provider] - - Critical Care Note This patient required my direct & personal management of CC.: No Attestation - Physician/ WAN Attestation Patient care was provided by Advanced Practice Provider:: Yes Advanced Practice Provider:: Amilcar Santillan Advanced Practice Provider documentation review:: The Mid-level provider documentation, treatment plan and medical decision making was reviewed by the physician who agrees with all treatment and medical decision making by the P. The physician spent face to face time with patient:: No Advanced Practice Provider documentation review:: Supervising physician onsite and consulted in the evaluation and care of this patient. The physician did not have a face to face encounter with the patient.
[2019-04-04 14:21] LABS: URINE SOURCE CLEAN CATCH
[2019-04-04 14:24] LABS: BILIRUBIN URINE NEGATIVE (NEGATIVE); BLOOD URINE NEGATIVE (NEGATIVE); COLOR YELLOW; GLUCOSE URINE NEGATIVE (NEGATIVE); KETONE URINE NEGATIVE (NEGATIVE); LEUKOCYTES URINE NEGATIVE (NEGATIVE); NITRITE URINE NEGATIVE (NEGATIVE); PH URINE 6.5; PROTEIN URINE NEGATIVE (NEGATIVE); SP GRAVITY URINE 1.012; TURBIDITY URINE CLEAR (CLEAR); UROBILINOGEN URINE NORMAL (NORMAL)
[2019-04-04 14:25] LABS: UR EPITHELIAL CELLS <10 /HPF (<10); URINE BACTERIA NEGATIVE /HPF; URINE RBC <10 /HPF (<10); URINE WBC <10 /HPF (<10)
[2019-04-04 14:30] LABS: BASO# 0.08 X1000 (0.0-0.2); BASO% 0.4 % (0.0-0.8); EOS# 0.09 X1000 (0.0-0.7); EOS% 0.5 % (0.0-10.0); HEMATOCRIT 20.6 % (37.0-47.0); IMM GRAN# 0.19 X1000 (0.0-0.04); LYMPH# 6.63 X1000 (1.2-3.4); LYMPH% 36.4 % (20.5-51.1); MCH 30.7 PG (27-31); MCV 90.4 FL (81-99); MONO# 1.74 X1000 (0.11-0.59); MONO% 9.6 % (1.7-9.3); MPV 9.9 FL (7.4-10.4); NEUT# 9.46 X1000 (1.4-6.5); NEUT% 52.1 % (42.2-75.2); PLT 395 X1000 (130-400); RBC 2.28 XMIL (4.2-5.4); RDW 16.4 % (11.5-14.5); WBC 18.19 X1000 (4.8-10.8)
[2019-04-04 14:34] LABS: INR 1.16; PROTIME 14.9 Seconds (11.0-16.0)
[2019-04-04 14:51] LABS: UR AMPHETAMINES QUAL NONE DETECTED (NONE DETECT); UR BARBITUATES QUAL NONE DETECTED (NONE DETECT); UR BENZODIAZEPIN QUAL NONE DETECTED (NONE DETECT); UR CANNABINOIDS QUAL PRESUMPTIVE POSITIVE (NONE DETECT); UR COCAINE QUAL NONE DETECTED (NONE DETECT); UR METHADONE QUAL NONE DETECTED (NONE DETECT); UR OPIATES QUAL NONE DETECTED (NONE DETECT); UR OXYCODONE QUAL NONE DETECTED (NONE DETECT); UR PCP QUAL NONE DETECTED (NONE DETECT)
[2019-04-04 14:53] LABS: AGAP 11; ALB/GLOB RATIO 1.6; ALBUMIN 4.6 g/dL (3.5-5.0); ALKALINE PHOSPHATASE 109 U/L (32-104); BUN 3 mg/dL (8-22); CALCIUM 8.7 mg/dL (8.8-10.2); CHLORIDE 103 mmol/L (98-107); COSMO 268; CREATININE 0.5 mg/dL (0.5-0.9); ESTIMATED GFR > 60; GLUCOSE 88 mg/dL (70-104); GOT 38 U/L (10-30); GPT 33 U/L (10-36); POTASSIUM 3.9 mmol/L (3.5-5.1); SODIUM 136 mmol/L (136-145); TCO2 22 mmol/L (25-35); TOTAL BILIRUBIN 1.44 mg/dL (0.20-1.00); TOTAL PROTEIN 7.5 g/dL (6.3-8.3)
[2019-04-04 14:56] LABS: PTT 93.6 Seconds (22.3-41.8); RETIC% 18.66 % (0.8-2.1)
[2019-04-04] MEDS ORDERED: ZOFRAN IV ONE (14:58)
[2019-04-04] MEDS ORDERED: MORPHINE IV ONE (14:58)
--- NOTE | 2019-04-04 14:58 | Diag Imaging Result Doc PS360 ---
EXAM: CHEST-2 VIEWS 04/04/2019 HISTORY: weakness, bodyaches, elevated WBC TECHNIQUE: PA and lateral chest COMMENT: There is a Port-A-Cath on the right. The heart size and pulmonary vascularity are within normal limits. The appearance of the chest has not changed significantly since 02/17/2019. IMPRESSION: Stable chest. Electronically signed by Antelmo Mccoy 04/04/2019 2:55 PM
[2019-04-04 15:23] LABS: ANISOCYTOSIS 2+; BANDS 2 % (0-1); HYPOCHROM 1+; LYMPHS 33 % (21-51); MONO 7 % (1-9); NRBC 2 % (0-0); POIKILOCYTOSIS 1+; SEGS 55 % (42-75); SICKLE CELLS 1+
[2019-04-04] MEDS ORDERED: DILAUDID IV ONE (15:50)
--- NOTE | 2019-04-04 16:28 | HISTORY AND PHYSICAL ---
ADDENDUM: Briefly this is a 29-year-old female well known to our service for sickle cell disease. She is here with sickle cell crisis. She is complaining of pain in her back and her legs for the last 24 hours similar to previous issues. Her current hemoglobin and hematocrit is 7 and 20 with a retic count of 18%. Her exam is benign. Clear lungs. Abdomen is soft, nontender. She will be admitted for hydration and pain control and sickle cell crisis. Her hemoglobin and hematocrit is low. I am not quite sure what the cutoff is for transfusion that can be dependent obviously, that being said she was transfused last admission with higher parameters than she has now, less retic count and a higher hemoglobin and hematocrit. If oncology-hematology would just document what threshold they have for her that would be appreciated and they will be consulted in the morning. We will continue pain medication and follow closely. This is a [id number] encounter note with Nel Ann. cc: Edinson Garces MD
--- NOTE | 2019-04-04 16:38 | HISTORY AND PHYSICAL ---
PRIMARY CARE PHYSICIAN: Dr. Roslyn King. ELECTRONIC DATA INTERCHANGE SPECIALIST: Dr. Mendez. CHIEF COMPLAINT: Of generalized pain states "having a sickle cell crisis " vomited 1 time last night with blood streaking in the emesis. HISTORY OF PRESENTING ILLNESS: This is a 29-year-old female well known to the hospitalist service presents to [facility] with complaints of generalized pain that began last when the weather changed. States she saw her galley stripper last and received some fluids and pain medication in his office but with the recent weather changes she states that her bilateral lower extremity pain increased and that she knew that she was in a crisis. Her workup showed a white blood cell count of 18.19, hemoglobin 7.0, hematocrit 20.6, her percent retic count was 18.66 and so she is being admitted for further evaluation and treatment. PAST MEDICAL HISTORY: Of sickle cell anemia, anxiety disorder, GERD, seasonal allergies, chronic elevation of liver enzymes and chronic leukocytosis. PAST SURGICAL HISTORY: Right port placement, tonsillectomy and adenoidectomy, cholecystectomy, breast reduction, section and bilateral tubal ligation. FAMILY HISTORY: Her mother had hypertension, father had diabetes type 2. She denies any family having sickle cell but it is noted that both her parents have the sickle cell trait. SOCIAL HISTORY: She is a half a pack a day smoker and has been for at least the past 8 years. Denies any alcohol use and uses marijuana p.r.n. for her pain. ALLERGIES: Chlorpromazine and Ketoralac. HOME MEDICATIONS: Zyrtec 10 mg p.o. daily, clonazepam 1 mg p.o. b.i.d., Jadenu 90 mg p.o. at bedtime, [place] 10 one p.o. q.4 hours p.r.n. is being held, hydroxyurea 500 mg p.o. b.i.d. and omeprazole 10 mg p.o. daily. LABORATORY DATA: Showed a white blood cell count of 18.19, hemoglobin 7.0, hematocrit 20.6, platelets 395,000, PT and INR of 14.9, 1.16, PTT 93.6. Sodium 136, potassium 3.9, chloride 103, CO2 22, BUN of 3, creatinine 0.5, glucose 88. Urinalysis was negative. Urine drug screen was presumptive positive for cannabinoids and percent retic count was 18.66. Chest x-ray showed a stable chest. REVIEW OF SYSTEMS: She denied any fever, chills, blurred vision, dizziness, chest pain, coughing, shortness of breath. She had generalized pain but primarily in her lower extremities, some nausea, vomiting last night and noted some blood streaking in her emesis and denied any constipation, diarrhea or burning or hurting with urination. PHYSICAL EXAMINATION: On arrival she had a temperature of 98.5 degrees, pulse 107, respirations 18, blood pressure was 96/63, saturating 96% on room air. GENERAL: This is a 29-year-old female lying in the bed and answers questions appropriately. HEENT: Normocephalic, atraumatic. Normal ENT inspection. Oropharynx and nares are clear. Pupils are equal, round, and reactive to light, accommodation. Extraocular movements are intact. NECK: Normal inspection, normal range of motion. LUNGS: Clear to auscultation bilaterally with equal lung expansion and chest wall movement. HEART: Regular rate and rhythm. No murmurs, rubs, or gallops. ABDOMEN: Soft, nontender, nondistended. Bowel sounds are present x4 quadrants. MUSCULOSKELETAL: She had 5/5 strength x4 extremities. NEUROLOGICAL: The cranial nerves 2-12 appear grossly intact. ASSESSMENT: 1. Sickle cell anemia with crisis. 2. Anxiety. 3. Tobacco abuse. 4. Marijuana abuse. OUR PLAN: She is being admitted to the medical unit, placed on telemetry. We are going to transfuse 1 unit of packed red blood cells today. We are going to consult her galley stripper, place her on normal saline at 125 mL an hour, place her on Benadryl 25 mg IV q.6 hours, will give her Dilaudid 1 mg IV q.3 hours p.r.n. Recheck CBC, BMP in the a.m. and further orders after seen by attending and by hr consultant. Dictated by HUONG Yancey for Edinson Garces MD cc: MD Edinson Funk MD Pt seen and examined; she is in sickle crisis; although lungs are clear; HH is low and would offer to transfuse but pt wants to wait until dr mendez has evaluated her; as currently getting tx for iron overload; due to repeated transfusions. FESTUS
[2019-04-04] MEDS ORDERED: TYLENOL PO PRN (18:15)
[2019-04-04] MEDS: DILAUDID IV PRN ×2 (19:14→22:28)
[2019-04-04] MEDS: ZOFRAN IV PRN ×2 (20:35→23:54)
[2019-04-04] MEDS: NS 1,000 ML IV SCH (20:37)
[2019-04-04] MEDS ORDERED: KLONOPIN PO SCH (21:00)
[2019-04-04] MEDS: HYDREA PO SCH (22:03)
[2019-04-04] MEDS: PATIENT'S OWN MED PO SCH (22:04)
[2019-04-04] MEDS: KLONOPIN PO SCH (22:07)
[2019-04-05] MEDS: DILAUDID IV PRN ×9 (01:14→23:04)
[2019-04-05] MEDS: NS 1,000 ML IV SCH ×3 (03:13→21:51)
[2019-04-05 06:03] LABS: HEMOGLOBIN 5.9 g/dL (12.0-16.0)
[2019-04-05 06:12] LABS: BASO# 0.09 X1000 (0.0-0.2); BASO% 0.5 % (0.0-0.8); EOS# 0.17 X1000 (0.0-0.7); HEMATOCRIT 17.9 % (37.0-47.0); IMM GRAN# 0.22 X1000 (0.0-0.04); IMM GRAN% 1.2 % (0.0-0.5); LYMPH# 7.76 X1000 (1.2-3.4); LYMPH% 43.7 % (20.5-51.1); MCH 30.3 PG (27-31); MCV 91.8 FL (81-99); MONO# 1.74 X1000 (0.11-0.59); MONO% 9.8 % (1.7-9.3); MPV 10.2 FL (7.4-10.4); NEUT# 7.77 X1000 (1.4-6.5); NEUT% 43.8 % (42.2-75.2); PLT 333 X1000 (130-400); RBC 1.95 XMIL (4.2-5.4); RDW 16.1 % (11.5-14.5); WBC 17.75 X1000 (4.8-10.8)
[2019-04-05 06:31] LABS: AGAP 9; BUN 4 mg/dL (8-22); CALCIUM 7.2 mg/dL (8.8-10.2); CHLORIDE 107 mmol/L (98-107); COSMO 273; CREATININE 0.5 mg/dL (0.5-0.9); ESTIMATED GFR > 60; GLUCOSE 100 mg/dL (70-104); POTASSIUM 3.6 mmol/L (3.5-5.1); SODIUM 138 mmol/L (136-145); TCO2 22 mmol/L (25-35)
[2019-04-05] MEDS ORDERED: PRILOSEC PO SCH (07:00)
[2019-04-05 07:46] LABS: BANDS 2 % (0-1); EOS 2 % (1-10); LYMPHS 38 % (21-51); MONO 1 % (1-9); SEGS 57 % (42-75)
[2019-04-05 07:47] LABS: ANISOCYTOSIS 3+; OVALOCYTES 1+; SICKLE CELLS 2+
[2019-04-05] MEDS: ZYRTEC PO SCH (08:51)
[2019-04-05] MEDS: HYDREA PO SCH ×2 (08:51→21:51)
[2019-04-05] MEDS: KLONOPIN PO SCH ×2 (08:51→21:52)
[2019-04-05] MEDS: BENADRYL IV PRN ×2 (08:55→21:52)
[2019-04-05] MEDS: PHENERGAN IV PRN ×2 (16:39→22:59)
--- NOTE | 2019-04-05 17:49 | PROGRESS NOTE ---
DATE: 04/05/2019 SUBJECTIVE: Patient has no major complaints. OBJECTIVE: Vital Signs: Blood pressure is stable. Cardiovascular: Regular rate and rhythm. Pulmonary: Bilateral breath sounds, clear to auscultation. Gastrointestinal: Soft, nontender, nondistended. Bowel sounds are positive. DIAGNOSTIC DATA: White count 17, hemoglobin and hematocrit are 5 and 17, platelets 333,000. Basic was normal. PROBLEM LIST: 1. Sickle cell crisis. We will continue IV fluids. I am going to put her on some anti- inflammatory. She is allergic to Toradol, but it is not really clear what the allergy is per se, but we will make sure she is on a PPI. Continue hydration. We have transfused her 1 unit, but we will have to be careful because she is already iron overload, which is the next problem. 2. Iron overload. She is deferoxamine. DISPOSITION: Pending her clinical status. We will continue to monitor closely. cc: Edinson Garces MD
[2019-04-05] MEDS: LODINE PO SCH (19:54)
[2019-04-05] MEDS: PATIENT'S OWN MED PO SCH (21:13)
[2019-04-06] MEDS: DILAUDID IV PRN ×7 (01:58→21:34)
[2019-04-06] MEDS: BENADRYL IV PRN ×3 (03:59→20:12)
[2019-04-06] MEDS: ZOFRAN IV PRN ×2 (04:57→11:14)
[2019-04-06] MEDS: NS 1,000 ML IV SCH ×3 (04:58→18:35)
[2019-04-06 05:38] LABS: HEMATOCRIT 20.7 % (37.0-47.0); MCH 30.7 PG (27-31); MCHC 33.8 g/dL (33-37); MCV 90.8 FL (81-99); MPV 10.2 FL (7.4-10.4); RBC 2.28 XMIL (4.2-5.4); RDW 15.7 % (11.5-14.5); WBC 17.7 X1000 (4.8-10.8)
[2019-04-06] MEDS: PRILOSEC PO SCH (06:29)
[2019-04-06] MEDS: PHENERGAN IV PRN ×3 (06:29→20:13)
[2019-04-06] MEDS: ZYRTEC PO SCH (08:18)
[2019-04-06] MEDS: HYDREA PO SCH ×2 (08:18→21:33)
[2019-04-06] MEDS: LODINE PO SCH ×2 (08:18→16:54)
[2019-04-06] MEDS: KLONOPIN PO SCH ×2 (08:18→21:33)
[2019-04-06] MEDS ORDERED: DILAUDID IV PRN (13:51)
--- NOTE | 2019-04-06 14:12 | PROGRESS NOTE ---
DATE: 04/06/2019 SUBJECTIVE: The patient reports feeling fine. OBJECTIVE: Vital Signs: Temperature 97.5 degrees, heart rate 92, respiratory rate 14, blood pressure 115/75, O2 saturation 100% on room air. General examination: This is a 29-year-old female, lying in bed, in no acute distress. Cardiovascular: S1, S2 heard. No murmurs, gallops, or rubs. Regular rate and rhythm. Respiratory: Clear bilaterally to auscultation. No work of breathing or using accessory muscles. Abdomen: Soft. Nontender to palpation. Bowel sounds present. No organomegaly. Extremities: No clubbing, cyanosis, or edema. Peripheral pulses present in both legs. Neurological: Patient is alert and oriented x3. Moves 4 extremities. LABORATORY DATA: White cell count 17.70, hemoglobin 7.0, hematocrit 28.7, platelets 325,000. No BMP available. ASSESSMENT AND PLAN: 1. Sickle cell crisis. The patient reports feeling better. She is receiving huge amounts of opiates, in this case Dilaudid 2 mg IV q.3 hours. In order to try to transition to oral medication, we are going to decrease the doses of Dilaudid from 2 mg to 1 mg q.3 hours. We are going to provide Tylenol 1 g IV q.6 hours scheduled. If patient continues to improve and no really changes in the CBC or white cell count or LDH, I think we will discharge her tomorrow. 2. Iron overload. The patient is on deferoxamine, that is why we would do not want to transfuse more blood. She has received 1 unit yesterday and the hemoglobin is 7.0. We will leave the decision to transfuse at the discretion of Hematology Oncology. 3. Marijuana abuse. Aware. Addendum: Patient refused to change dosis and frequency of Dilaudid. Currently she is receiving 2 mg IV q3hrs that according to nurse she is requesting over the clock as well as Phenergan. Her hemoglobin is better. She reports that is what she usually receives at her primary Hematology doctors office. I think if retic count, hemoglobin and WBC is ok she should be discharged. cc: MD FESTUS Nuñez
[2019-04-06] MEDS: OFIRMEV 1000 MG/ISOTONIC SOLN 1,000 MG/100 ML BOTTLE IV SCH ×2 (16:54→20:52)
--- NOTE | 2019-04-06 18:55 | HEMO/ONC CONSULTATION ---
DATE: 04/06/2019 ADMITTING PHYSICIAN: Edinsno Garces MD REQUESTING PHYSICIAN: Edinson Garces MD. We appreciate this consult. CHIEF COMPLAINT: Sickle cell crisis. HISTORY OF PRESENT ILLNESS: Ms. Rosalina Lyman is a pleasant 29-year-old, female, well known to Dr. Richards with a history of sickle cell disease. The patient is followed monthly in clinic by Dr. Richards and is currently being maintained on Hydrea and folic acid. The patient presented to [facility] Emergency Department the day of admission secondary to severe pain in her back and legs that worsened over 24 hours. Upon presentation to [facility], hemoglobin was found to be 5.9. The patient was admitted for sickle cell crisis. We are consulted as the patient is well known to us. PAST MEDICAL HISTORY: 1. Sickle cell anemia. 2. Anxiety disorder. 3. Gastroesophageal reflux disease. 4. Chronic elevation of liver enzymes. 5. Chronic leukocytosis. PAST SURGICAL HISTORY: 1. Right port placement. 2. Tonsillectomy and adenoidectomy. 3. Cholecystectomy. 4. Breast reduction. 5. section. 6. Bilateral tubal ligation. FAMILY HISTORY: Negative for any hematologic or oncologic disease. However the patient's parents both have sickle cell trait. SOCIAL HISTORY: The patient smokes 1/2 pack cigarettes daily. She uses marijuana p.r.n.. She denies alcohol use. MEDICATIONS ON ADMISSION: 1. Zyrtec. 2. Clonazepam. 3. Jadenu. 4. [place]. 5. Hydroxyurea. 6. Omeprazole. ALLERGIES: Are to chlorpromazine and ketorolac. REVIEW OF SYSTEMS: A 14 point review of systems was obtained and is negative except for mentioned in the HPI. EXAM: Ms. Lyman is a pleasant 29-year-old, female, well known to Dr. Richards, lying supine in bed in no immediate distress.Vital Signs: Temperature 98 degrees, blood pressure 100/60, heart rate 91, respirations 18, O2 saturation 96% on room air. HEENT: Normocephalic, atraumatic. Mucous membranes pale and moist. Sclerae anicteric. Extraocular movements intact. Neck: Supple. Lungs: Clear to auscultation bilaterally. Chest expansion equal bilaterally. CV: S1, S2 is heard. No murmurs, rubs or gallops. Abdomen: Nondistended. Extremities: No clubbing, cyanosis, or edema. Dermatologic: No rashes, bruises or lesions. Neurologic: The patient is awake, alert, and oriented x3. She has no focal deficit. LABORATORY DATA: Hemoglobin 5.9, hematocrit 17.9, white blood cell count is 17.75, platelets 333,000. Sodium 138, potassium 3.6, chloride 107, CO2 is 22, BUN 4, creatinine 0.5 and glucose is 100. Calcium 7.2. IMAGING STUDIES: Chest x-ray is stable. ASSESSMENT AND PLAN: 1. Sickle cell disease. Currently in pain crisis would continue pain medications per hospitalist. 2. Anemia secondary to #1. Would transfuse only 1 unit packed red blood cells at this time as the patient does have significant iron overload. Would continue on Jadenu as prescribed. 3. Anxiety, known. Stable at this time. 4. Tobacco abuse. We will continue to encourage cessation. 5. We will follow along with you and make further recommendations pending outcomes. The above reflects the history exam assessment and plan of Dr. Richards Dictated by HUONG Dahl for Telly Richards MD cc: HUONG Dahl MD
[2019-04-06] MEDS: PATIENT'S OWN MED PO SCH (21:11)
[2019-04-07] MEDS: DILAUDID IV PRN ×8 (00:55→23:22)
[2019-04-07] MEDS: OFIRMEV 1000 MG/ISOTONIC SOLN 1,000 MG/100 ML BOTTLE IV SCH ×4 (01:17→20:30)
[2019-04-07] MEDS: PHENERGAN IV PRN ×3 (03:31→18:17)
[2019-04-07] MEDS: BENADRYL IV PRN ×4 (03:34→23:22)
[2019-04-07 06:07] LABS: BASO# 0.07 X1000 (0.0-0.2); BASO% 0.5 % (0.0-0.8); EOS% 1.3 % (0.0-10.0); HEMOGLOBIN 6.1 g/dL (12.0-16.0); IMM GRAN# 0.09 X1000 (0.0-0.04); IMM GRAN% 0.6 % (0.0-0.5); LYMPH# 5.39 X1000 (1.2-3.4); MCH 28.9 PG (27-31); MCHC 32.1 g/dL (33-37); MONO# 1.22 X1000 (0.11-0.59); MONO% 7.9 % (1.7-9.3); MPV 10.3 FL (7.4-10.4); NEUT# 8.41 X1000 (1.4-6.5); NEUT% 54.7 % (42.2-75.2); PLT 274 X1000 (130-400); RBC 2.11 XMIL (4.2-5.4); RDW 16.3 % (11.5-14.5); RETIC% 12.82 % (0.8-2.1); RETIC-HE 29.4 PG (28.2-36.6); WBC 15.38 X1000 (4.8-10.8)
[2019-04-07] MEDS: PRILOSEC PO SCH (06:38)
[2019-04-07] MEDS: NS 1,000 ML IV SCH ×3 (06:38→22:00)
[2019-04-07 08:21] LABS: ANISOCYTOSIS 1+; HYPOCHROM 1+; LYMPHS 34 % (21-51); MONO 4 % (1-9); NRBC 1 % (0-0); POIKILOCYTOSIS 1+; SEGS 62 % (42-75); SICKLE CELLS OCCASIONAL; TARGET CELLS OCCASIONAL
[2019-04-07] MEDS: LODINE PO SCH ×2 (09:27→17:27)
[2019-04-07] MEDS: KLONOPIN PO SCH ×2 (09:27→20:26)
[2019-04-07] MEDS: HYDREA PO SCH ×2 (09:28→20:26)
[2019-04-07 09:32] LABS: AGAP 12; ALBUMIN 3.7 g/dL (3.5-5.0); BUN 5 mg/dL (8-22); CALCIUM 7.4 mg/dL (8.8-10.2); CHLORIDE 107 mmol/L (98-107); COSMO 272; CREATININE 0.5 mg/dL (0.5-0.9); ESTIMATED GFR > 60; GLUCOSE 82 mg/dL (70-104); PHOSPHORUS 3.9 mg/dL (2.7-4.5); POTASSIUM 4.1 mmol/L (3.5-5.1); SODIUM 138 mmol/L (136-145); TCO2 19 mmol/L (25-35)
[2019-04-07] MEDS: ZYRTEC PO SCH (10:25)
[2019-04-07] MEDS ORDERED: BENADRYL IV ONE (11:50)
[2019-04-07] MEDS ORDERED: TYLENOL PO ONE (11:51)
[2019-04-07] MEDS ORDERED: PHENERGAN IV PRN (13:08)
--- NOTE | 2019-04-07 14:36 | PROGRESS NOTE ---
DATE: 04/07/2019 SUBJECTIVE: The patient is still complaining of chest pain and back pain and lower extremity pain, she has been requesting pain medication and also something for nausea, her hemoglobin is low, 6.1 today. She received already 1 unit of blood and we will give her another one today, for now we will continue with same management. I talked to the patient about decreasing her pain medication and nausea medication slowly and she agreed with that, but today she is in pain. We will see how she does tomorrow. OBJECTIVE: Vital Signs: Temperature 97.8 degrees, pulse 93, respiratory rate 16, blood pressure 121/73, oxygen saturation 97% on room air. HEENT: Head normocephalic, no trauma, PERRLA. Neck: Supple, no JVD. No masses. Central trachea. Chest: Clear to auscultation. No wheezing. No rales. Some tenderness to palpation at the level of the upper thoracic area and back. Abdomen: Soft, nontender, nondistended. Positive bowel sounds. Extremities: No edema, no clubbing, no cyanosis. As per the patient, it is a little bit painful to movement. Neurological: This patient is alert. She is oriented x3. No focal deficits. LABORATORY: WBC 15.3, hemoglobin 6.1, hematocrit 19, platelets 274,000, sodium 138, potassium 4.1, chloride 107, bicarbonate 19, BUN 5, creatinine 0.5, glucose 82, calcium 7.4, LDH 500. ASSESSMENT AND PLAN: 1. Sickle cell crisis, continue pain medication, IV fluids, and we will go ahead and give her 1 unit of blood. We will monitor this patient closely. 2. Anemia secondary to #1, like I mentioned before we will transfuse this patient with only 1 unit of PRBC and we will monitor. 3. Anxiety, stable. 4. Tobacco abuse. This patient has been highly advised against tobacco use. Will continue with daily cessation education. 5. Iron overload. Continue with deferoxamine. 6. Apparent history of marijuana use. cc: Abe De La Rosa MD
[2019-04-07] MEDS: PATIENT'S OWN MED PO SCH (20:39)
[2019-04-08] MEDS: PHENERGAN IV PRN ×4 (00:13→19:39)
[2019-04-08] MEDS: DILAUDID IV PRN ×7 (02:21→21:22)
[2019-04-08] MEDS: OFIRMEV 1000 MG/ISOTONIC SOLN 1,000 MG/100 ML BOTTLE IV SCH ×4 (02:21→19:38)
[2019-04-08] MEDS: BENADRYL IV PRN ×3 (04:58→18:46)
[2019-04-08 05:16] LABS: BASO# 0.04 X1000 (0.0-0.2); BASO% 0.2 % (0.0-0.8); EOS# 0.17 X1000 (0.0-0.7); EOS% 1.1 % (0.0-10.0); HEMATOCRIT 21.8 % (37.0-47.0); HEMOGLOBIN 7.4 g/dL (12.0-16.0); IMM GRAN# 0.09 X1000 (0.0-0.04); IMM GRAN% 0.6 % (0.0-0.5); LYMPH# 4.33 X1000 (1.2-3.4); LYMPH% 26.8 % (20.5-51.1); MCHC 33.9 g/dL (33-37); MCV 88.3 FL (81-99); MONO# 1.29 X1000 (0.11-0.59); MPV 10.1 FL (7.4-10.4); NEUT# 10.21 X1000 (1.4-6.5); NEUT% 63.3 % (42.2-75.2); PLT 300 X1000 (130-400); RBC 2.47 XMIL (4.2-5.4); RDW 16.2 % (11.5-14.5); WBC 16.13 X1000 (4.8-10.8)
[2019-04-08 05:34] LABS: AGAP 11; BUN 5 mg/dL (8-22); CALCIUM 8.5 mg/dL (8.8-10.2); CHLORIDE 106 mmol/L (98-107); COSMO 274; CREATININE 0.5 mg/dL (0.5-0.9); ESTIMATED GFR > 60; GLUCOSE 89 mg/dL (70-104); PHOSPHORUS 3.6 mg/dL (2.7-4.5); POTASSIUM 3.9 mmol/L (3.5-5.1); SODIUM 139 mmol/L (136-145); TCO2 22 mmol/L (25-35)
[2019-04-08] MEDS: PRILOSEC PO SCH (06:09)
[2019-04-08] MEDS: NS 1,000 ML IV SCH ×3 (06:14→20:59)
[2019-04-08] MEDS: ZYRTEC PO SCH (08:23)
[2019-04-08] MEDS: KLONOPIN PO SCH ×2 (08:23→20:57)
[2019-04-08] MEDS: LODINE PO SCH ×2 (08:24→18:37)
[2019-04-08] MEDS: SODIUM CHLORIDE 0.9% INJ PRN (13:11)
--- NOTE | 2019-04-08 13:27 | PROGRESS NOTE ---
DATE: 04/08/2019 SUBJECTIVE: This patient is still complaining of pain but, also, she has been having nausea and vomiting, especially yesterday night and today in the morning. She has tolerated some liquid diet. I will continue with the same management today. Tomorrow, hopefully, I will decrease the frequency and/or the amount of pain medication. Hopefully, in 2 days, if everything is okay, I will discharge this patient home. OBJECTIVE: Vital Signs: Temperature 98.1 degrees, pulse 88, respiratory rate 17, blood pressure 114/75, oxygen saturation 97% on room air. HEENT: Head normocephalic. No trauma. PERRLA. Neck: Supple. No JVD. No masses. Central trachea. Chest: Clear to auscultation. No wheezing. No rales. Some tenderness to palpation at the level of the upper thoracic area and back. Abdomen: Soft, nontender, nondistended. No hepatosplenomegaly. Extremities: No edema, no clubbing, no cyanosis. Neurologic Examination: The patient is alert. She is oriented x3. No focal deficits. Laboratory: WBCs 16, hemoglobin 7.4, hematocrit 21.8, platelets 300,000. Sodium 139, potassium 3.9, chloride 106, bicarbonate 22, BUN 5, creatinine 0.5, glucose 89, calcium 8.5, albumin 4. ASSESSMENT AND PLAN: 1. Sickle cell crisis. I will continue with pain medication, intravenous fluid. She received 2 units of packed red blood cells already. Hemoglobin today is 7.4, so we will continue to monitor. 2. Nausea and vomiting. Continue with nausea medication. 3. Anemia secondary to #1, status post 2 units of packed red blood cells. 4. Anxiety, stable. 5. Tobacco abuse. This patient has been highly advised against tobacco use. I will continue with daily cessation education. 6. Iron overload. Continue with the deferoxamine. 7. Apparent history of marijuana use. Aware. She has been counseled. cc: Abe De La Rosa MD
[2019-04-08] MEDS: HYDREA PO SCH ×2 (14:01→20:57)
[2019-04-08] MEDS: PATIENT'S OWN MED PO SCH (20:58)
[2019-04-09] MEDS: DILAUDID IV PRN ×8 (00:20→22:53)
[2019-04-09] MEDS: BENADRYL IV PRN ×4 (00:45→19:42)
[2019-04-09] MEDS: PHENERGAN IV PRN ×4 (01:20→22:52)
[2019-04-09] MEDS: OFIRMEV 1000 MG/ISOTONIC SOLN 1,000 MG/100 ML BOTTLE IV SCH ×4 (01:53→21:51)
[2019-04-09] MEDS: NS 1,000 ML IV SCH ×2 (05:00→13:08)
[2019-04-09 05:27] LABS: BASO# 0.06 X1000 (0.0-0.2); BASO% 0.5 % (0.0-0.8); EOS# 0.19 X1000 (0.0-0.7); EOS% 1.5 % (0.0-10.0); HEMATOCRIT 18.6 % (37.0-47.0); HEMOGLOBIN 6.2 g/dL (12.0-16.0); IMM GRAN# 0.08 X1000 (0.0-0.04); IMM GRAN% 0.6 % (0.0-0.5); LYMPH# 4.53 X1000 (1.2-3.4); LYMPH% 34.6 % (20.5-51.1); MCH 29.5 PG (27-31); MCHC 33.3 g/dL (33-37); MCV 88.6 FL (81-99); MONO# 1.08 X1000 (0.11-0.59); MONO% 8.3 % (1.7-9.3); MPV 10.1 FL (7.4-10.4); NEUT# 7.15 X1000 (1.4-6.5); NEUT% 54.5 % (42.2-75.2); PLT 267 X1000 (130-400); WBC 13.09 X1000 (4.8-10.8)
[2019-04-09 05:46] LABS: AGAP 10; ALBUMIN 3.5 g/dL (3.5-5.0); BUN 5 mg/dL (8-22); CALCIUM 8.4 mg/dL (8.8-10.2); CHLORIDE 109 mmol/L (98-107); COSMO 278; CREATININE 0.5 mg/dL (0.5-0.9); ESTIMATED GFR > 60; GLUCOSE 87 mg/dL (70-104); PHOSPHORUS 4.2 mg/dL (2.7-4.5); POTASSIUM 3.7 mmol/L (3.5-5.1); SODIUM 141 mmol/L (136-145); TCO2 22 mmol/L (25-35)
[2019-04-09] MEDS: PRILOSEC PO SCH ×2 (05:51→08:34)
[2019-04-09 07:07] LABS: LYMPHS 36 % (21-51); SEGS 58 % (42-75)
[2019-04-09] MEDS: ZYRTEC PO SCH (09:25)
[2019-04-09] MEDS: KLONOPIN PO SCH ×2 (09:25→21:51)
[2019-04-09] MEDS: SODIUM CHLORIDE 0.9% INJ PRN ×2 (09:25→16:31)
[2019-04-09] MEDS: LODINE PO SCH ×2 (09:25→17:35)
[2019-04-09] MEDS: HYDREA PO SCH ×2 (11:22→21:51)
[2019-04-09] MEDS: ZOFRAN IV PRN (12:47)
--- NOTE | 2019-04-09 16:13 | PROGRESS NOTE ---
DATE: 04/09/2019 SUBJECTIVE: This patient is still complaining of pain and she is still having nausea and vomiting. Hemoglobin today 6.2. I communicated with the Hematology Oncology team and she is getting 1 unit of blood. OBJECTIVE: Vital Signs: Temperature 97.6 degrees, pulse 86, respiratory rate 18, blood pressure 112/78, oxygen saturation 9% on room air. HEENT: Head normocephalic, no trauma, PERRLA. Neck: Supple. No JVD. No masses. Central trachea. Chest: Clear to auscultation. No wheezing. No rales. Some tenderness to palpation at the level of the upper thoracic area and back. Abdomen: Soft, nontender, nondistended. No hepatosplenomegaly. Extremities: No edema, no clubbing, no cyanosis. Neurological: The patient is alert she is oriented x3. No focal deficits. LABORATORY: WBC 13, hemoglobin 6.2, hematocrit 18.6, platelets 267,000, sodium 141, potassium 3.7, chloride 109, bicarbonate 22, BUN 5, creatinine 0.5, glucose 87, calcium 8.4, albumin 3.5. ASSESSMENT AND PLAN: 1. Sickle cell crisis, continue with pain medication, IV fluids which I will decrease of 75 mL/h. She received already 2 units of PRBCs and she is getting the third one. Continue to monitor. 2. Nausea and vomiting. Continue with nausea medication. 3. Anemia, secondary to #1, status post 2 PRBCs and now she is getting the third one. Anxiety stable. 4. Tobacco abuse. This patient has been highly advised against tobacco use. Will continue with daily cessation education. 5. Iron overload. Continue with deferoxamine. 6. Apparent history of marijuana use. Aware. She has been counseled. cc: Abe De La Rosa MD
[2019-04-09] MEDS ORDERED: NS 1,000 ML IV SCH (17:51)
[2019-04-09] MEDS: PATIENT'S OWN MED PO SCH (21:52)
[2019-04-10] MEDS: OFIRMEV 1000 MG/ISOTONIC SOLN 1,000 MG/100 ML BOTTLE IV SCH ×4 (01:55→20:48)
[2019-04-10] MEDS: DILAUDID IV PRN ×8 (01:56→23:46)
[2019-04-10] MEDS: BENADRYL IV PRN ×4 (01:56→20:54)
[2019-04-10] MEDS: PHENERGAN IV PRN ×4 (05:11→23:47)
[2019-04-10 06:17] LABS: BASO# 0.07 X1000 (0.0-0.2); BASO% 0.4 % (0.0-0.8); EOS# 0.18 X1000 (0.0-0.7); EOS% 1.1 % (0.0-10.0); HEMATOCRIT 22.3 % (37.0-47.0); HEMOGLOBIN 7.4 g/dL (12.0-16.0); IMM GRAN# 0.11 X1000 (0.0-0.04); IMM GRAN% 0.7 % (0.0-0.5); LYMPH# 5.11 X1000 (1.2-3.4); LYMPH% 30.2 % (20.5-51.1); MCHC 33.2 g/dL (33-37); MCV 90.3 FL (81-99); MONO# 1.25 X1000 (0.11-0.59); MONO% 7.4 % (1.7-9.3); NEUT% 60.2 % (42.2-75.2); PLT 263 X1000 (130-400); RBC 2.47 XMIL (4.2-5.4); RDW 16.2 % (11.5-14.5); WBC 16.92 X1000 (4.8-10.8)
[2019-04-10 06:18] LABS: AGAP 10; ALBUMIN 3.8 g/dL (3.5-5.0); BUN 5 mg/dL (8-22); CALCIUM 8.1 mg/dL (8.8-10.2); CHLORIDE 108 mmol/L (98-107); COSMO 276; CREATININE 0.5 mg/dL (0.5-0.9); ESTIMATED GFR > 60; GLUCOSE 81 mg/dL (70-104); PHOSPHORUS 3.9 mg/dL (2.7-4.5); POTASSIUM 3.6 mmol/L (3.5-5.1); SODIUM 140 mmol/L (136-145); TCO2 22 mmol/L (25-35)
[2019-04-10] MEDS: PRILOSEC PO SCH (06:20)
[2019-04-10 06:58] LABS: LYMPHS 36 % (21-51); SEGS 60 % (42-75)
[2019-04-10] MEDS: ZYRTEC PO SCH (08:29)
[2019-04-10] MEDS: LODINE PO SCH ×2 (08:29→17:36)
[2019-04-10] MEDS: HYDREA PO SCH ×2 (08:29→20:48)
[2019-04-10] MEDS: KLONOPIN PO SCH ×2 (08:30→20:51)
[2019-04-10] MEDS: ZOFRAN IV PRN ×2 (08:30→14:42)
[2019-04-10] MEDS: NS 1,000 ML IV SCH (08:32)
--- NOTE | 2019-04-10 10:50 | PROGRESS NOTE ---
DATE: 04/10/2019 SUBJECTIVE: Hemoglobin improved after 1 PRBC. She is still complaining of pain and nausea, but this is probably chronic also. I have decreased the rate of the IV fluids. Hopefully, tomorrow we will discharge this patient. Also have decreased the amount of pain medication. OBJECTIVE: Vital Signs: Temperature 98.1 degrees, pulse 74, respiratory rate 14, blood pressure 125/81, oxygen saturation 100% on room air. HEENT: Head normocephalic, no trauma. PERRLA. Neck: Supple. No JVD. No masses. Central trachea. Chest: Clear to auscultation. No wheezing. No rales. Some tenderness to palpation at the level of the upper thoracic area, also her sites and back. Abdomen: Soft, nontender, nondistended. No hepatosplenomegaly. Extremities: No edema no clubbing no cyanosis. Neurological: The patient is alert. She is oriented x3. No focal deficits. LABORATORY DATA: WBC 16.9, hemoglobin 7.4, hematocrit 22.3, platelets 263,000. Sodium 140, potassium 3.6, chloride 108, bicarbonate 22, BUN 5, creatinine 0.5, glucose 81, calcium 8.1, albumin 3.8. ASSESSMENT AND PLAN: 1. Sickle cell crisis. I have decreased the rate of the IV fluids. I have decreased the pain medication. We will continue with medication for nausea and vomiting. Hopefully tomorrow she will be discharged. 2. Anemia secondary to #1, status post 3 packed red blood cells, hemoglobin is around 7.5. 3. Tobacco abuse. This patient has been highly advised against tobacco use. I will continue with daily cessation education. 4. Iron overloaded. Continue with the same management 5. Apparent history of marijuana use. Aware. This patient has been counseled. cc: Abe De La Rosa MD MTDD
[2019-04-10] MEDS: PATIENT'S OWN MED PO SCH (20:48)
[2019-04-11] MEDS: NS 1,000 ML IV SCH ×2 (02:15→05:24)
[2019-04-11] MEDS: OFIRMEV 1000 MG/ISOTONIC SOLN 1,000 MG/100 ML BOTTLE IV SCH ×2 (02:15→08:17)
[2019-04-11] MEDS: DILAUDID IV PRN ×4 (02:16→11:20)
[2019-04-11] MEDS: BENADRYL IV PRN ×2 (02:16→09:56)
[2019-04-11 05:24] LABS: BASO# 0.05 X1000 (0.0-0.2); BASO% 0.4 % (0.0-0.8); EOS# 0.09 X1000 (0.0-0.7); EOS% 0.7 % (0.0-10.0); HEMATOCRIT 19.9 % (37.0-47.0); HEMOGLOBIN 6.5 g/dL (12.0-16.0); IMM GRAN# 0.09 X1000 (0.0-0.04); IMM GRAN% 0.7 % (0.0-0.5); LYMPH# 4.49 X1000 (1.2-3.4); LYMPH% 33.1 % (20.5-51.1); MCH 29.5 PG (27-31); MCHC 32.7 g/dL (33-37); MCV 90.5 FL (81-99); MONO# 1.06 X1000 (0.11-0.59); MONO% 7.8 % (1.7-9.3); MPV 10.4 FL (7.4-10.4); NEUT# 7.79 X1000 (1.4-6.5); NEUT% 57.3 % (42.2-75.2); PLT 259 X1000 (130-400); WBC 13.57 X1000 (4.8-10.8)
[2019-04-11 05:26] LABS: AGAP 11; BUN 5 mg/dL (8-22); CALCIUM 8.1 mg/dL (8.8-10.2); CHLORIDE 106 mmol/L (98-107); COSMO 274; CREATININE 0.5 mg/dL (0.5-0.9); ESTIMATED GFR > 60; GLUCOSE 88 mg/dL (70-104); POTASSIUM 3.1 mmol/L (3.5-5.1); SODIUM 139 mmol/L (136-145); TCO2 22 mmol/L (25-35)
[2019-04-11] MEDS: PRILOSEC PO SCH (06:35)
[2019-04-11] MEDS ORDERED: KLOR-CON PO ONE (08:06)
[2019-04-11] MEDS: LODINE PO SCH (08:16)
[2019-04-11] MEDS: HYDREA PO SCH (08:16)
[2019-04-11] MEDS: PHENERGAN IV PRN (08:17)
[2019-04-11] MEDS: KLONOPIN PO SCH (08:17)
[2019-04-11] MEDS: ZYRTEC PO SCH (08:22)
[2019-04-11 08:35] VITALS: BP 117/84
--- NOTE | 2019-04-11 16:29 | DISCHARGE SUMMARY ---
ADMISSION DATE: 04/04/2019 DISCHARGE DATE: 04/11/2019 DISCHARGE DIAGNOSES: 1. Sickle cell crisis, treated for 7 days with IV fluids, pain medication, and blood transfusion. 2. Anemia secondary to #1. 3. Tobacco abuse. 4. Iron overload. 5. Possible history of marijuana use. CONSULT: Hematology oncology department Dr. Richards/Dr. Caba. HOSPITAL COURSE: A 29-year-old female admitted on 04/04/2019 due to pain and also nausea and vomiting. She presented to [facility] complaining of generalized pain that began 3 or 4 days before admission when the weather changed. She states that she her automatic maintainer last . She received some fluid and pain medication in his office, but with the recent weather changes, she started having bilateral lower extremity pain, and she knew she was in crisis. Her workup showed a white blood cell count of 18.9, hemoglobin 7, hematocrit 20.6. Reticulocyte count was 18.6. She was admitted and placed on IV fluids, pain medication, and nausea medication. She received a total of 3 PRBCs in 3 different days, all of then authorizes by Hematology/Oncology Department. It looks like she has been asking for the pain medication basically scheduled. She actually fired 1 of my colleagues because he tried to decrease the pain medication a few days ago. I continued with her medications. I continue with the IV fluids. I am trying to keep the hemoglobin above 7. Vital signs have been always stable. I do not have a single report of elevated temperature. I did a blood culture that is negative for more than 48 hours done on 04/08/2019. Since this patient was better yesterday, I talked to her, and I decreased the dose of the pain medication, and she agreed with that. I did not hear any complaints about it after that, and I told the patient that she will be discharged today, that she has been 7 days today in the hospital, and I do not think she has a crisis at this point. Today she states that she is still in pain, and she is still having nausea and vomiting, but I do believe honestly this patient has been trying to get as much as she can narcotics during this hospitalization. I talked to the patient, and she said that she takes narcotics p.o. and also Phenergan at home through her mouth, and she is in pain at least 4 or 5 times per week, and she takes those medications then. Today her hemoglobin was 6.5, so I communicated with Hematology/Oncology Department, Dr. Caba, who stated that this patient does not need a new blood transfusion today, and he also mentioned that her reticulocyte count is 12.8, which means that it is responding. She does have some leukocytosis, which is chronic. Dr. Caba recommended that the patient can call the office tomorrow to make an appointment this week, but the patient states that she will go to the office anyway tomorrow, and I agree with that. Her potassium level is low today, and I will replace it. I do not believe this patient needs to be in the hospital. I do believe this patient received enough treatment including 7 days of intravenous fluids. She received 3 PRBCs and pain medication every single day. I believe this patient can be discharged today, and I discussed the case with Dr. Caba. He agreed with that. PHYSICAL EXAMINATION: Vitals: Temperature 98.5 degrees, pulse 77, respiratory rate 15, blood pressure 117/84, oxygen saturation 97% on room air. HEENT: Head normocephalic, no trauma. PERRLA. Neck: Supple. No JVD. No masses. Central trachea. Chest: Clear to auscultation. No wheezing. No rales. As per the patient, some tenderness to palpation at the level of the upper thoracic area and back. Abdomen: Soft, nontender, nondistended. No hepatosplenomegaly. Extremities: No edema, no clubbing, no cyanosis. Neurological: The patient is alert. She is oriented x3. No focal deficits. LABORATORY: WBC 13.5, hemoglobin 6.5, hematocrit 19.9, platelets 259,000. Sodium 139, potassium 3.1, chloride 106, bicarbonate 22, BUN 5, creatinine 0.5, glucose 88, calcium 8.1. DISCHARGE MEDICATIONS: The patient basically will continue with her home medications includin. Zyrtec 10 mg p.o. daily. 2. Clonazepam 1 mg p.o. b.i.d. 3. Deferasirox 90 mg p.o. at bedtime. 4. [place] 10 every 4 hours as needed for pain. 5. Hydroxyurea 500 mg p.o. b.i.d. 6. Omeprazole daily. Time discharging this patient and trying to explain to her the whole situation and my recommendations, around 35 minutes. cc: Abe De La Rosa MD
== END 2019-04-11 15:15 | disposition home or self-care (01) | DRG 812 ==
LOC: ED 12:01 → EDIPHOLD 16:25 → SUATTDRO 16:25 → 1N 20:09
PROVIDERS: ATTEND Internal Medicine